=== PATIENT | female | born 1945 | race Caucasian/White ===

== ENCOUNTER → 2020-12-30 13:18 | Outpatient (CLI) | payer OTHER, SELFPAY ==
[2020-12-30 13:57] LABS: Add Manual Diff / Slide Review NO; Basophils Absolute Auto 0 /uL (0-100); Basophils Percent Auto 0.4 % (0-2); Eosinophils Absolute Auto 200 /uL (0-450); Eosinophils Percent Auto 2.3 % (2-4); Hematocrit 41.8 % (36-46); Hemoglobin 13.5 g/dL (12.0-16.0); Lymphocytes Absolute Auto 1700 /uL (1100-4500); Lymphocytes Percent Auto 20.9 % (25-40); Mean Corpuscular HGB Conc 32.2 % (30-36); Mean Corpuscular Hemoglobin 28.7 PG (26-34); Mean Corpuscular Volume 89.2 fL (80-100); Monocytes Absolute Auto 700 /uL (0-900); Monocytes Percent Auto 9.2 % (3-14); Neutrophils Absolute Auto 5400 /uL (1500-7000); Neutrophils Percent Auto 67.2 % (50-75); Platelet Count 300 X10^3/uL (150-400); Red Blood Cell Count 4.69 X10^6/uL (4.0-5.2); Red Cell Distribution Width 14.9 % (11.6-14.8); White Blood Cell Count 8.1 X10^3/uL (4.5-11.0)
[2020-12-30 14:03] LABS: Hemoglobin A1C% w Est Avg Glu 5.7 % (4.0-6.0)
[2020-12-30 14:37] LABS: BUN Creatinine Ratio 18.4 (6-22); Blood Urea Nitrogen 14 mg/dL (7-17); Calcium 9.7 mg/dL (8.4-10.2); Carbon Dioxide 34 mmol/L (22-32); Chloride 99 mmol/L (98-107); Estimated Glomerular Filt Rate > 60.0 mL/min (>60); Glucose 85 mg/dL (80-110); HEMOLYSIS < 15 (0-50); Potassium 4.5 mmol/L (3.4-5.1); Sodium 140 mmol/L (137-145)
== END ==
PROVIDERS: Family Provider Physician Assistant Medical; PCP Internal Medicine; Referring Provider Orthopaedic Surgery Orthopaedic Surgery of the Spine; Visit Provider Orthopaedic Surgery Orthopaedic Surgery of the Spine
DX: Z01.818 Encounter for other preprocedural examination (principal); R73.9 Hyperglycemia, unspecified; Z01.812 Encounter for preprocedural laboratory examination
CPT/HCPCS: 36415; 80048; 83036; 85025; 93005

== ENCOUNTER → 2021-01-29 11:33 | Outpatient (CLI) | payer OTHER, SELFPAY ==
--- NOTE | 2021-01-29 11:52 | DI.CT.S_ITS ---
PROCEDURE: CT LUMBAR SPINE WO CON INDICATIONS: Spinal stenosis, lumbar region without neurogenic TECHNIQUE: Noncontrast 3 mm thick sections acquired from the T12 level to the sacrum. Sagittal and coronal reformats were constructed. For radiation dose reduction, the following was used: automated exposure control. COMPARISON: [facility], MR, MR LUMBAR SPINE WITHOUT CONTRAST, 11/03/2020, 9:25. FINDINGS: Image quality: Excellent. Bones: Vertebral body height and bone mineralization normal. No compression fracture . Minimal anterior spondylolisthesis noted at L3-4. Convex right thoracolumbar scoliosis T12-L1: Disc space narrowing noted without central or foraminal stenosis. L1-L2: Disc space narrowing and mild circumferential disc bulge present. No central or foraminal stenosis. L2-L3: Disc space narrowing with circumferential disc bulge and dorsal epidural fat resulting in moderate to severe central stenosis. Severe left and right foraminal stenosis noted as well. L3-L4: Disc space narrowing and circumferential disc bulge combines with dorsal epidural fat and hypertrophic facet joints result in moderate central stenosis. Severe bilateral foraminal stenosis greater on the right. L4-L5: Disc space narrowing and circumferential disc bulge with hypertrophic facet joints results in mild central stenosis. There is severe right and moderate left foraminal stenosis. L5-S1: Disc space narrowing and circumferential disc bulge present without central stenosis. Hypertrophic facet joints result in severe bilateral foraminal stenosis. Incidental sacral perineural cysts noted with foraminal remodeling, similar to the prior MRI. Soft tissues: No retroperitoneal masses or hematomas. Visualized aorta is normal in caliber. Nonobstructive calculi noted in both kidneys. Moderate fecal debris present in the right colon. IMPRESSION: 1. Multilevel degenerative disc disease and arthropathy resulting varying degrees of central and foraminal stenosis including moderate central stenosis at L2-3 and L3-4 as well as multilevel severe foraminal stenosis in the lower lumbar spine as above. Approved by: Jarret Mcpherson M.D. on 02/06/2021 at 15:41
== END ==
PROVIDERS: Family Provider Physician Assistant Medical; PCP Internal Medicine; Referring Provider Orthopaedic Surgery Orthopaedic Surgery of the Spine; Visit Provider Orthopaedic Surgery Orthopaedic Surgery of the Spine
DX: M48.061 Spinal stenosis, lumbar region without neurogenic claudication (principal); M48.07 Spinal stenosis, lumbosacral region; M51.36 Other intervertebral disc degeneration, lumbar region; M51.37 Other intervertebral disc degeneration, lumbosacral region; M47.816 Spondylosis without myelopathy or radiculopathy, lumbar region; M47.817 Spondylosis without myelopathy or radiculopathy, lumbosacral region
CPT/HCPCS: 72131

== ENCOUNTER → 2021-02-09 10:10 | Outpatient (CLI) | payer OTHER, SELFPAY ==
[2021-02-09 14:14] LABS: COVID19 -Nasal RAPID Negative (Negative)
== END ==
PROVIDERS: Family Provider Physician Assistant Medical; PCP Internal Medicine; Referring Provider Physician Assistant; Visit Provider Physician Assistant
DX: Z01.812 Encounter for preprocedural laboratory examination (principal); Z20.822 Contact with and (suspected) exposure to COVID-19
CPT/HCPCS: 87635

== ENCOUNTER 2021-02-11 06:57 | Inpatient (IN) | payer OTHER, SELFPAY ==
[2021-02-03 08:37] VITALS: BMI 34.3
[2021-02-11] VITALS (16 sets, daily range): BP systolic 111–153; BP diastolic 55–78; PULSE 91–107; RESP 12–17; TEMP 35.9–36.9; O2SAT 92–140; BMI 34.3
--- NOTE | 2021-02-11 | DI.RAD.S_ITS ---
PROCEDURE: XR LUMBAR SPINE 2-3V INDICATIONS: L3-4 L4-5 TLIF TECHNIQUE: 2 views of the lumbar spine were acquired. COMPARISON: [facility], CT, CT LUMBAR SPINE WO CON, 01/29/2021, 11:53. FINDINGS: Fluoroscopic image demonstrating posterior fusion from L3 through L5 with prosthetic discs are noted. IMPRESSION: Fluoroscopic fusion as above. Dictated by: Ailyn Mejia M.D. on 02/11/2021 at 15:16 Approved by: Ailyn Mejia M.D. on 02/11/2021 at 15:35
[2021-02-11] MEDS: LACTATED RINGERS 1,000 ML 42 ML IV ×2 (08:08→10:25)
--- NOTE | 2021-02-11 08:36 | PM.PREOP ---
Pre-operative Note COVID-19 COVID-19 status: Negative Result date/Date tested (Pos, Neg/Pending): 02/09/21 Interval Note History & Physical reviewed/Exam performed by Physician: Yes Changes to H&P: No H&P completed within 30 days and has changed as indicated here:: Surgery is scheduled for L3-4, L4-5 TLIF. Risks for surgery include but not limited to bleeding, infection, nerve/dura/bladder/bowel/blood vessel injury, need for additional procedure, even . Pt understands and would like to proceed with surgery. Informed consent is obtained and placed in the chart.
[2021-02-11] MEDS: CEFAZOLIN 1 GM VIAL 2 GM IV ×2 (09:23→16:59)
[2021-02-11] MEDS: BUPIVACAINE LIPOSOME 266 MG/20 ML VIAL INJ (09:50)
[2021-02-11] MEDS: BUPIVACAINE 0.25% (PF) 30 ML, EPINEPHrine 0.3 MG INJ (09:50)
--- NOTE | 2021-02-11 09:56 | SUR.OPER ---
Prone on spine table, head in foam head support, padded chest and pelvic supports, gel pad at knees, lower legs supported by pillows; nipples, genitalia and toes free of pressure, gel pad placed between heels, arms secured on foam padded arm boards at <90 degrees abduction. Tape over blanket at thigh secured to table. Two Gel pad placed, one between patients stomach and bed frame and thigh and bed frame on left side.
--- NOTE | 2021-02-11 13:01 | P.OP_ITS ---
Operative Date/Time/Diagnoses Date of procedure: 02/11/21 Time of procedure: 08:45 Pre-op diagnosis: 1. L3-4, L4-5 spinal stenosis with radiculopathy 2. Lumbar scoliosis Post-op diagnosis: same Procedure & Clinicians Procedure: 1. L3-4, L4-5 Postero-lateral and posterior interbody fusion 2. L3-4, L4-5 interbody cage placement. 3. L3-4, L4-5 decompressive laminectomy with bilateral facetecomies 4. L3-4, L4-5 Posterior segmental instrumentation 5. [place] of bone marrow from iliac crest 6. Utilization of microsurgical technique and operating microscope 7. Robotic assisted navigation Same procedure as scheduled: Yes Indications: Patient has been having chronic back pain and worsening lumbar radiculopathy. Patient failed multiple conservative management with worsening pain weakness and numbness in her lower extremity. Patient has been having difficulty performing activity of daily living. After discussing risks benefits of treatment options, patient elected proceed with surgery. Surgeon: Eda Yuan Geology Teacher: Cy Daniel Click Yes if Unassisted: No Anesthesia Type: General Operative Notes Closure Type: primary Specimen(s): none sent Prosthetic devices, grafts, tissues, transplants, or devices: Globus CREO MIS screws, Rise cages Applied: catheter Estimated Blood Loss (mL): 150 Blood products transfused: none Procedure in detail: Patient was seen in the preoperative area. Risks and benefits of the surgery was discussed with the patient. Informed consent was obtained from the patient and placed in the chart. Surgical site was marked. Patient was taken to the operative room. General anesthesia was administered. Prophylactic antibiotic was given to the patient less than 30 min before the incision was made. Patient was placed into a prone position on the Bear table. Patient's back was then prepped and draped in the sterile fashion. Time-out was performed at this time. After patient was prepped and draped, patient's PSIS was palpated and marked bilaterally. Small 1 cm incision was made over the PSIS for placement of the reference probes. Two trocar was placed into the PSIS 1 on each side. The reference probe was attached to the trocar of the reference apparatus. At this time the C-arm imaging was used to confirm AP and lateral of L3, L4-L5 vertebrae and merged the C-arm imaging using the [employer] robotic navigation system with the CT of the lumbar spine. After successful merging was completed and confirmed, skin marker was used to yaya out the skin incision using the [employer] robotic arm. Bilateral incision was made at this time. Pre templated trajectory was used and guided using the [employer] robotic navigation system for bilateral L3 L4, L5 pedicle screw placement. This was done by using the robotic arm to guide the high-speed bur to make a cortical entry point. Next a drill was placed also using the robotic arm and guided using the navigation system drilling partially through bilateral L3, L4, L5 pedicles. Next L3, L4, L5 pedicle screws it was pre templated and measured was placed onto the power transportation driver and inserted into the pedicles bilaterally. After all 6 screws were placed C-arm imaging was taken of both AP and lateral to confirm the placement. Excellent placement of the screws were confirmed and a matched precisely with the pre planned screw placement using the navigation system. MARs retractor was inserted using [employer] guidence. Globus MARS retractors was placed inside the incision and docked onto the L3, L4 lamina. Using microsurgical technique and operating microscope, a L4, L5 laminectomy and L3-4, L4-5 facetectomy was performed using a [place] rongeur. Patient was found have severe lateral recess and neural foramen stenosis which was fully decompressed after the laminectomy facetectomy. More than 75% of the facets were removed during the process of decompression rendering L3-4, L4-5 level grossly unstable and required a fusion procedure at the same time. The disc space at L3-4, L4-5 was identified, and a total diskectomy was performed at L3- 4, L4-5 level. The endplates were decorticated using a rasp and shaver. The total diskectomy and decortication was performed at L3-4, L4-5 level in order to to accomplish a L3-4, L4-5 fusion. The local bone from the laminectomy and facetectomy was saved for local bone grafting. After the total diskectomy and decortication was completed, Trifecta bone graft material was combined with local bone that was harvested earlier. At this time, a separate skin is incision was made over the iliac crest. A Jamshidi needle was inserted into the iliac crest through a separate skin incision. 5 cc of bone marrow aspiration was obtained through the separate skin incision using a Jamshidi needle from the iliac crest. The bone marrow aspiration was combined with local bone and the Trifecta bone grafting material. The bone grafting material was placed into the L3-4, L4-5 interbody space along with expandable cages. One cage each was inserted into the L3-4 L4-5 interbody space along with bone graft material. The cage was expanded to its maximum height using the torque limiting screwdriver. The disc preparation as well as the cage insertion were also performed under navigation guidance. After the cage was placed, AP and lateral C-arm imaging was taken to confirm placement of the cage and excellent position was confirmed. Globus MARS retractor was inserted and docked onto the L3-4, L4-5 posterolateral gutter on the right side. Using the power drill, posterior-lateral decortication was performed at L3-4, L4-5 level until bleeding cortical bone was identified. The remaining bone grafting material was placed into the L3-4, L4-5 posterior lateral gutter he order to accomplish posterolateral fusion at the L3- 4, L4-5 level. At this time the tulips were attached to the L3, L4-L5 pedicle screw shanks. After measuring the length of the rods, they were inserted into the tulips of the pedicle screws and locked in place using locking caps and torque limiting screwdriver bilaterally. Total 6 caps and 2 titanium rods was used in order to complete the posterior instrumentation construct. After all the hardware was placed, and confirmed with AP and lateral C-arm imaging, the wound was then irrigated with sterile normal saline and packed with Ray-Tony gauze for 3 min to accomplish hemostasis. After the gauze was removed the deep fascia was closed with #1 Vicryl suture. The subcutaneous layer was closed with 2-0 Vicryl. The skin was closed with skin lora. Patient tolerated the procedure well. There were no complications. Neuro monitoring system was used to monitor patient's neurologic status throughout entire procedure. There was no disturbance of the neural monitoring signals throughout the case. Complications: none Post-operative Condition: stable Disposition: PACU Plan for aftercare: Admit to inpatient hospital
[2021-02-11] MEDS: OXYCODONE/ACETAMINOPHEN 5/325 TABLET 1 TAB PO (14:24)
--- NOTE | 2021-02-11 15:03 | PC.NURSE ---
Day shift: Pt on AC unit from PACu at approx 1500. She is A&Ox4 but tired and she stated I feel kind of confused. She knows the date and why she is here and who did the surgery just slow to respond. She also knows her name and BD. CMS intact and PPP. Dressing is CDI. Foot SCD's in place and tolerated. On 3L NC 94%. Hx using CPAP and her CPAP in room. Call light in reach and bed alarm is on. Will continue w/ post-op plan of care.
--- NOTE | 2021-02-11 15:03 | SUR.PHASEI ---
pacu note: 1455-Pt met criteria to transfer to floor. More awake and alert. Reminded prn that surgery is over,and reassured prn. Patient calm and cooperative. vss. no nausea. pain level 3-4/10 and tolerable. pain pill given prior to report to floor. neurochecks ble wnl. grasps/csm bue wnl. tolerating fluids po well-sips of water/ice chips. redness to chest and groins from positioning in OR resolved. small rt upper lip cut noted-not bleeding. lumbar dressing cdi.Report to floor RN by phone prior to transfer. to room by bed with 2 l nc oxygen. 2 bags of belongings and cpap with patient. iv converted to sl prior to transffer.
[2021-02-11] MEDS: SODIUM CHLORIDE 0.9% 1,000 ML 100 ML IV (15:31)
[2021-02-11] MEDS: PREGABALIN 75 MG CAPSULE PO ×2 (15:36→21:18)
[2021-02-11] MEDS: HYDROMORPHONE 0.5 MG INJ IV (15:36)
[2021-02-11] MEDS: OXYCODONE IR 5 MG TABLET 10 MG PO (15:36)
[2021-02-11] MEDS: OXYCODONE IR 10 MG TABLET PO ×2 (19:39→23:36)
[2021-02-11] MEDS: DOCUSATE 100 MG CAPSULE PO (21:18)
[2021-02-11] MEDS: SENNOSIDES 8.6 MG TABLET 17.2 MG PO (21:18)
[2021-02-11] MEDS: NORTRIPTYLINE 10 MG CAPSULE PO (21:24)
--- NOTE | 2021-02-11 22:47 | PC.NURSE ---
Addendum entered by Mirian Costello R.N. 02/12/21 04:47: Oxygen had to be increased to 4L/min via CPAP during the night to maintain sat > 92% while asleep. Now awake so placed back on NC at 3L/min. Original Note: Patient is alert and oriented. Breath sounds diminished at bases. On oxygen at 3L/min with sat of 92%. RT up to assist patient with CPAP and bled O2 in at 3L/min. HRR but tachy in low 100's on auscultation. Denied nausea. BT hypoactive but states she has passed flatus. Indwelling catheter is patent and urine is clear yellow. Is able to turn self in bed (instructed in log roll) with staff assist for pillow placement. Dressing to back is CDI. States she has bilateral hand numbness which was present pre-op and unchanged. Wearing bilateral foot SCD's. Stated pain was 7/10 so was medicated with oxycodone and was asleep on reassessment. Fall risk score is high and bed alarm is activated.
[2021-02-12] VITALS (7 sets, daily range): BP systolic 102–125; BP diastolic 40–58; PULSE 95–109; RESP 16–18; TEMP 36.4–37.1; O2SAT 92–98
[2021-02-12] MEDS: CEFAZOLIN 1 GM VIAL 2 GM IV (00:47)
[2021-02-12] MEDS: hydrOXYzine pamoate 25 MG CAPSULE PO (00:48)
[2021-02-12] MEDS: SODIUM CHLORIDE 0.9% 1,000 ML 100 ML IV (01:34)
[2021-02-12] MEDS: OXYCODONE IR 10 MG TABLET PO ×3 (03:30→11:40)
[2021-02-12] MEDS: LEVOTHYROXINE 75 MCG TABLET PO (05:31)
--- NOTE | 2021-02-12 07:47 | PM.PNPO.1 ---
Subjective Subjective Date Patient Seen: 02/12/21 Time Patient Seen: 07:47 Interval history: Patient is complaining of moderate low back pain this morning. She notes oxy 10 is helping her. She denies any new numbness or tingling. No fevers, chills, night sweats. She lives in a 3 story house and has not worked with physical therapy yet. Exam Vital Signs (past 8 hours): - 02/12/21 01:54 02/12/21 05:57 Temperature 97.6 F 98.7 F Pulse Rate 95 H 96 H Respiratory Rate 18 17 Blood Pressure 125/58 L 111/48 L Pulse Oximetry 92 95 Oxygen Delivery Method CPAP Oxygen Flow Rate 2 Narrative Exam Narrative: Pleasant 75-year-old female, resting comfortably in bed, no acute distress. Dressing has extensive the bloody drainage on the left side. Bilateral lower extremity motor function is grossly intact. Sensation is grossly intact to light touch. Bilateral calves are soft, nontender to palpation. Objective Labs Result Diagrams: 02/12/21 06:52 [facility] Medical History Anxiety Arthritis Asthma Depression Easy bruisability Fusion of spine of cervical region (2014) IRAM (generalized anxiety disorder) HTN (hypertension) Hypothyroid ROVERTO on CPAP Patellar fracture (2009) Sciatica Scoliosis Spinal stenosis of lumbar region with radiculopathy Spondylolisthesis Surgical History History of hysterectomy (1988) History of total left knee replacement History of total right knee replacement Hx of colonoscopy Hx of sinus surgery Social History household members: spouse Smoking Status: Never smoker alcohol intake: current Assessment & Plan Post-op Postoperative Procedures: Procedures Operation Date: 02/11/21 08:45 Actual Procedure Side Surgeon p Right L3-4, L4-5 TLIF with posterior instrumentation - Robot Eda Yuan MD Postoperative day: 1 Postoperative status narrative: Stable status post TLIF Postoperative plan narrative: -mobilize with PT. Limit bending, lifting, twisting. Weightbearing as tolerated front wheel walker. -encouraged regular use of Tylenol and oxy 10 for pain management. -likely DC home tomorrow once cleared by PT, she lives in a 3 story house Quality VTE Deep Vein Thrombosis/Pulmonary Embolism Present on Admission: No
[2021-02-12 08:10] LABS: Hematocrit 35.6 % (36-46); Hemoglobin 11.6 g/dL (12.0-16.0)
[2021-02-12] MEDS: DOCUSATE 100 MG CAPSULE PO ×2 (08:34→20:23)
[2021-02-12] MEDS: VENLAFAXINE ER 75 MG CAP 150 MG PO (08:34)
[2021-02-12] MEDS: PREGABALIN 75 MG CAPSULE PO ×3 (08:34→20:23)
[2021-02-12] MEDS: lisinopriL 20 MG TABLET PO (08:34)
[2021-02-12] MEDS: NORTRIPTYLINE 10 MG CAPSULE PO ×2 (08:34→20:23)
[2021-02-12] MEDS: LORATADINE 10 MG TABLET PO (08:38)
[2021-02-12] MEDS: INFLUENZA HD VACCINE 0.7 ML SYRINGE IM (08:39)
[2021-02-12] MEDS: SODIUM CHLORIDE 0.9% FLUSH 10 ML IV ×2 (08:44→22:46)
--- NOTE | 2021-02-12 09:14 | DIET.PN1 ---
Dietary Progress Note Assessment: 75y F admitted for planned Right L3-4, L4-5 TLIF with posterior instrumentation - Robot referred to nutrition for diabetic diet (preDM). Pt reports she follows diabetic diet at home because her has DM2. Pt states her biggest barrier is not being able to be as active as she has been in the past but is confident that this surgery and new orthotics will make all the difference. Discussed importance of regular physical activity to avoid dx DM2 along with good, carb controlled diet. Pt agrees to plan and looks forward to starting PT. Ht: 162.56 cm Wt: 90.718 kg BMI: 34.3 Last BM: 02/10/21 (02/11/21 16:25) MNA: 11 Samuel Score: 19 Diet: 02/11/21 Lunch General (Regular) Diet Diet Modifications: Nutrition Percent Meal Consumed 100% 02/12/21 08:43 Percent Meal Consumed 50% 02/11/21 18:13 Labs: Hgb 11.6 g/dL (12.0-16.0) L 02/12/21 06:52 Hct 35.6 % (36-46) L 02/12/21 06:52 Electronically Signed by: Christiana Omer 02/12/21 09:14 Clinical Dietitian [address] [address]
--- NOTE | 2021-02-12 09:40 | PT.IIE ---
Current Diagnoses Other secondary scoliosis, lumbar region (02/12/21) Spondylolisthesis, lumbar region (02/12/21) Spinal stenosis, lumbar region without neurogenic claudication (02/12/21) Surgery Performed Operation Date: 02/11/21 08:45 Actual Procedures p Right L3-4, L4-5 TLIF with posterior instrumentation - Robot - Eda Yuan MD Medical History (Last Reviewed 02/12/21 @ 07:48 by Lisa Guzman PA-C) Anxiety Arthritis Asthma Depression Easy bruisability Fusion of spine of cervical region (2014) IRAM (generalized anxiety disorder) HTN (hypertension) Hypothyroid ROVERTO on CPAP Patellar fracture (2009) Sciatica Scoliosis Spinal stenosis of lumbar region with radiculopathy Spondylolisthesis Physical Therapy Inpatient Evaluation/Re-Eval M1 PT/OT-IP Prior Functional Status Start: 02/12/21 13:32 Freq: NEEDED Status: Active Protocol: Document 02/12/21 09:40 AB (Rec: 02/12/21 13:57 AB [id number]) Medical Review Prior Functional Status Medical History Reviewed Yes Communication able to make needs known but is drowsy Mobility and Gait pt stated that she is independent with all mobilities and ambulation without AD but uses a 4WW occasionally for outdoor mobility dependent on back pain Activities of Daily Living and IADL's Pt states needing increased time for ADl needs and that her has to do IADl needs. Social History Household Members spouse Living Arrangements House Number of Floors (Floors) 3 or More Floors Number of Stairs To Enter/Railing? 1 step to enter: can stay on first level if needed 20 steps R rail ascending to bedroom level/kitchen Home Environment Standard Height Toilet,Walk in Shower Home Equipment Four Wheel Walker,Raised Toilet Seat w/Armrests,Shower Seat with Backrest,Hand Held Shower Additional Social History Comment has a toilet safety frame M2 PT-IP Current Condition Start: 02/12/21 13:32 Freq: NEEDED Status: Active Protocol: Document 02/12/21 09:40 AB (Rec: 02/12/21 13:57 AB [id number]) Physical Therapy Current Condition Current Condition Evaluation Date 02/12/21 Treatment Diagnosis s/p L3-4,L4-5 TLIF; difficulty in walking Onset Date 02/11/21 M3 PT-IP Subjective Start: 02/12/21 13:32 Freq: NEEDED Status: Active Protocol: Document 02/12/21 09:40 AB (Rec: 02/12/21 13:57 AB [email or web address]) Subjective Physical Therapy Visit Type Type Initial Evaluation Visit Start Time 09:40 Visit Stop Time 10:26 Total Visit Minutes 46 Number of MUSEUM REGISTRAR Visits 0 Physical Therapy Visit Comments Patient Comments agreeable to do PT Therapy Pain Assessment Pain When Pain Assessed At Rest Pain Present Pain Present Pain Reported Location Back Intensity 5 Scale Used Numeric (0 - 10) Pain Management Techniques Apply Cold,Modification of Treatment,Re-positioning, Timing of Activity with Medications M4 PT-IP Mobility and Gait Start: 02/12/21 13:32 Freq: NEEDED Status: Active Protocol: Document 02/12/21 09:40 AB (Rec: 02/12/21 13:57 AB [email or web address]) PT-Bed Mobility Assessment Rolling Type of Rolling Log Rolling Level of Assist Moderate Assistance Supine to Sit Supine to Sit Moderate Assistance PT-Transfer Assessment Sit to and From Stand Sit to and from Stand Moderate Assistance,1 Person Assistance,Use of Upper Extremities Equipment Transfer Assistive Device Front Wheeled Walker Orthotic/Prosthetic Devices or Brace: No Transfers Transfer Destination Chair Transfer Technique ambulated Transfer Ability Level of Assist Moderate Assistance,1 Person Assistance,Use of Upper Extremities Comments Mobility Comments educated pt on back precautions and mitul groll bed mobility. pt is requiring increase cues and repeated instructions during session and needs time to respond and complete all tasks. pt admitted that she feels foggy. BP in suine: 114/56. completed supine to sit log roll mod a and max cues. pt was able to sit on EOB CGA and cues. BP in sittin/58. completed sit to stand mod A and cues and ambulated in room ~ 10 ft using FWW mod A and cues. presents with unsteady gait. pt agreed to sit up on chair. positioned on chair. call light and table place within reach. ice pack provided. BP after ambulation: 116/52 Gait Assessment Gait Gait Assistance Required: Moderate Assistance Distance (Feet) 10 Able to Maintain Weight Bearing Status Yes During Gait Assistive Devices Assistive Device Gait Belt,Front Wheeled Walker Orthotic/Prosthetic Devices or Brace: No Gait Deviations General Gait Pattern Ataxic,Decreased Stride Length ,Decreased Feet Clearance,Wide Based Gait Factors Limiting Gait Function Factors Limiting Gait Function Decreased Activity Tolerance, Decreased Strength,Difficulty Following Directions,Limited Range of Motion,Pain,Poor Balance,Poor Safety Awareness PT-Balance Assessment Sitting Balance and Reactions Static Sitting Balance Ability Good Dynamic Sitting Balance Ability Fair Standing Balance and Reactions Static Standing Balance Ability Fair Dynamic Standing Balance Ability Poor Device Used FWW M5 PT-IP Objective Assessments Start: 02/12/21 13:32 Freq: NEEDED Status: Active Protocol: Document 02/12/21 09:40 AB (Rec: 02/12/21 13:57 AB [email or web address]) Orientation Orientation/Cognition Level of Alertness Alert Orientation Name,Place,Situation Safety Awareness Decreased Safety Awareness Memory Description Short Term Impaired Gross Range of Motion Lower Extremity ROM Assessment Within Functional Limits Strength Lower Extremity Strength Hip 4-/5 Knee 4-/5 Coordination Assessment Gross Coordination Gross Coordination WNL Sensation Assessment Sensation Gross Sensation WNL Muscle Tone Muscle Tone WNL Yes M6 PT-IP Treatment Start: 02/12/21 13:32 Freq: NEEDED Status: Active Protocol: Document 02/12/21 09:40 AB (Rec: 02/12/21 13:57 AB [email or web address]) Physical Therapy Treatment Education Education Provided Precautions,Weight Bearing Status,Post-Op Packet,Safety M7 PT-IP Assessment and Plan Start: 02/12/21 13:32 Freq: NEEDED Status: Active Protocol: Document 02/12/21 09:40 AB (Rec: 02/12/21 13:57 AB [email or web address]) PT Summary Assessment and Plan Potential Rehabilitation Potential Good Status of Condition at Evaluation Evolving Summary Impairments Pain,ROM,Strength,Balance, Coordination,Sensation,Tone, Cognition,Bed Mobility, Transfers,Gait,Activity Tolerance Assessment Summary pt requiring mod A with mobility and needs time to follow directions. pt stated that she feels foggy. will continue to assess progress and will conduct caregiver training when appropriate as well as stair climbing training. Goals Bed Mobility Goal Standby Assistance Transfer Goal Standby Assistance,Front Wheeled Walker Gait Goal Standby Assistance,Front Wheel Walker Gait Distance 150 Other Goals up/down 1 steps using 4WW/FWW SBA up/down 20 steps R rail SBA Days to Meet Goals 5 Frequency of Treatment Frequency Of Treatment Twice a Day Treatment Plan Physical Therapy Treatment Plan Bed Mobility Training,Transfer Training,Gait Training, Therapeutic Exercise,Balance Retraining,Post Op Education, Discharge Planning,Hot or Cold Pack,Neuromuscular Re-ed, Coordination Retraining,Manual Therapy Other Recommendations and Next Treatment ambulation, stair climbing Focus when appropriate, log roll bed mobility Precautions Lumbar Precautions Log Roll,No Twisting,Limit Bending,Lifting Restriction of 10 lbs,Gait Belt above Incisional Area Recommendations To Nursing Amount of Assist Needed 1 Person Assist Discharge Recommendations PT Discharge Recommendations Home with Assistance Equipment Needed for Home Before FWW if not safe with 4WW Discharge Transportation Needs at Discharge Private Vehicle
--- NOTE | 2021-02-12 11:11 | OT.IP.EVAL ---
Current Diagnoses Other secondary scoliosis, lumbar region (02/12/21) Spondylolisthesis, lumbar region (02/12/21) Spinal stenosis, lumbar region without neurogenic claudication (02/12/21) Surgery Performed Operation Date: 02/11/21 08:45 Actual Procedures p Right L3-4, L4-5 TLIF with posterior instrumentation - Robot - Eda Yuan MD Past Medical History (Last Reviewed 02/12/21 @ 07:48 by Lisa Guzman PA-C) Anxiety Arthritis Asthma Depression Easy bruisability Fusion of spine of cervical region (2014) IRAM (generalized anxiety disorder) History of hysterectomy (1988) History of total left knee replacement History of total right knee replacement HTN (hypertension) Hx of colonoscopy Hx of sinus surgery Hypothyroid ROVERTO on CPAP Patellar fracture (2009) Sciatica Scoliosis Spinal stenosis of lumbar region with radiculopathy Spondylolisthesis Surgical History (Last Reviewed 02/12/21 @ 07:48 by Lisa Guzman PA-C) History of hysterectomy (1988) History of total left knee replacement History of total right knee replacement Hx of colonoscopy Hx of sinus surgery Occupational Therapy Inpatient Evaluation/Re-Eval M1 PT/OT-IP Prior Functional Status Start: 02/12/21 13:02 Freq: NEEDED Status: Active Protocol: Document 02/12/21 13:02 [facility] (Rec: 02/12/21 13:20 [facility] [id number]) Medical Review Prior Functional Status Communication Independent. Mobility and Gait Pt states could only stand for 5 minutes at a time before having too much back pain. Activities of Daily Living and IADL's Pt states needing increased time for ADl needs and that her has to do IADl needs. Social History Household Members spouse Living Arrangements House Number of Floors (Floors) 3 or More Floors Number of Stairs To Enter/Railing? Pt has one platform step to get into the main level of the house in which she plans to stay on. Home Environment Standard Height Toilet,Walk in Shower Home Equipment Front Wheel Walker,Four Wheel Walker,Raised Toilet Seat w/ Armrests,Kelp Or Seagrass Gatherer Additional Social History Comment Pt also has a toilet safety frame on the toilet. Pt has a recliner that she plans to sleep in initially. M2 OT-IP Current Condition Start: 02/12/21 13:02 Freq: Status: Active Protocol: Document 02/12/21 13:02 [facility] (Rec: 02/12/21 13:20 [facility] [id number]) Occupational Therapy Current Condition Current Condition Evaluation Date 02/12/21 Treatment Diagnosis S/P R L3-4, L4-5 TLIF Post Operative Precautions Lumbar Precautions Log Roll,No Twisting,Limit Bending,Lifting Restriction of 10 lbs,Gait Belt above Incisional Area M3 OT- IP Subjective and Pain Start: 02/12/21 13:02 Freq: Status: Active Protocol: Document 02/12/21 13:02 [facility] (Rec: 02/12/21 13:20 [facility] [id number]) OT- Subjective Occupational Therapy Visit Type Type Initial Evaluation Visit Start Time 10:40 Visit Stop Time 11:11 Total Visit Minutes 31 Occupational Therapy Visit Comments Patient Comments Pt agreed to stand up and work with OT. Patient/Caregiver Goals TO go home. OT Pain Assessment Pain When Pain Assessed At Rest Pain Present Pain Present Pain Reported Location Back Intensity 5 Scale Used Numeric (0 - 10) M4 OT- IP ADL's Start: 02/12/21 13:02 Freq: Status: Active Protocol: Document 02/12/21 13:02 [facility] (Rec: 02/12/21 13:20 [facility] [id number]) OT ADL-Grooming Comments OT Grooming Comments Pt not wanting to do at this time. OT ADL-Oral Care Comments Oral Care Comments Educated to pt best to spit into a cup to best follow her back precautions during oral care needs. OT ADL-Dressing General Eval Lower Body Dressing Ability Moderate Assistance Comments OT Dressing Comments Pt has a commissary assistant at home and able to practice sock aid and pt having difficulty to follow directions and will continue to benefit form more practice. OT ADL-Toileting Comments OT Toileting Comments Pt not having to go. Able to simulate if able to reach in order to do pericare needs while standing with FWW and pt able to reach appropriately. Pt states wears briefs/pads and has wet wipes to assist with her needs. Also showed pt an example of toilet paper aid as pt states her will probably not assist with her hygiene needs. Also suggested may be beneficial to get a BCS as pt plans on sleeping in a recliner and her is very hard of hearing and may be able to wake up to hear her at night. OT ADL-Bathing Comments OT Bathing Comments Not performed. Pt agreed best to get a shower chair and install a HHSP. M5 OT- IP IADL's Start: 02/12/21 13:02 Freq: Status: Active Protocol: Document 02/12/21 13:02 [facility] (Rec: 02/12/21 13:20 [facility] [id number]) OT-Instrumental Activities of Daily Living Home Safety Awareness Home Safety Comments Pt's to assist pt for all needs. Pt is a bit groggy from pain medications, forgetful and would benefit form 18/10 avaible assist at this time. M6 OT- IP Functional Cognition Start: 02/12/21 13:02 Freq: Status: Active Protocol: Document 02/12/21 13:02 [facility] (Rec: 02/12/21 13:20 [facility] [id number]) Cognitive Factors Limiting Selfcare Function Cognitive Ability Level of Alertness Alert,Confusional State Patient Orientation Name,Place,Situation Attention Span Ability Capable of Focused Attention, Unable to Sustain Attention Ability to Follow Commands Able to Follow One Step Commands with Increased Time, Able to Follow One Step Commands with Repetition Safety Awareness Decreased Recall of Precautions,Decreased Ability to Apply Precautions, Underestimates Need for Assistance Problem Solving Ability Unable to Identify Errors, Needs Assist to Identify Solutions Cognitive Comments Cognitive Assessment Comments Pt needing assist to recall , incorporate and ceus to be able to use sock aid at this time. OT- Vision and Hearing OT- Hearing Assessment OT- Hearing Assessment WFL OT- Vision Assessment Visual Acuity Glasses All The Time M7 OT- IP Mobility and Balance Start: 02/12/21 13:02 Freq: Status: Active Protocol: Document 02/12/21 13:02 [facility] (Rec: 02/12/21 13:20 [facility] [id number]) OT-Transfer Assessment Sit to and From Stand Sit to and from Stand Minimal Assistance Comments Mobility Comments Pt just finishing PT earlier and just agreeable to stand from the recliner at this time as waiting for lunch to come. OT- Balance Assessment Sitting Balance and Reactions Static Sitting Balance Ability Good Dynamic Sitting Balance Ability Good Standing Balance and Reactions Static Standing Balance Ability Fair M8 OT- IP Objective Assessments Start: 02/12/21 13:02 Freq: Status: Active Protocol: Document 02/12/21 13:02 [facility] (Rec: 02/12/21 13:20 [facility] [id number]) OT- Coordination Assessment Comments Coordination Comments Arthritic changes in her hands . OT-Muscle Tone Assessment Muscle Tone WNL Yes M9 OT- IP Assessment and Plan Start: 02/12/21 13:02 Freq: Status: Active Protocol: Document 02/12/21 13:02 [facility] (Rec: 02/12/21 13:20 [facility] [id number]) OT Summary Assessment and Plan Potential Rehabilitation Potential Good Analytic Complexity at Evaluation Low Summary OT Impairments Pain,Balance,Functional Cognition,Functional Mobility, Grooming,Dressing,Toileting, Bathing,Toilet Transfers, Shower Transfers,Activity Tolerance Progress Towards Goals Slow Progress due to Pain,Slow Progress due to Cognition Assessment Summary Pt Low complexity and main barriers are pain, a bit groggy and not thinking well from her pain medications, step at home and will now need assist for all Adl and mobility needs. Pt has a supportive who will be able to assist her at home. Pending progress and caregiver training, pt to go home with 24/7 assist. Goals Grooming Goal Independent Dressing Goal Independent Toileting Goal Independent Bathing Goal Standby Assistance Toilet Transfer Goal Independent Shower Transfer Goal Independent Patient/Caregiver Education Goal Demonstrate Post-Op Precautions,Caregiver Independent Assisting Patient Days to Meet Goals 7 Frequency of Treatment Frequency Of Treatment Once a Day Treatment Plan OT Treatment Plan ADL Training,Functional Cognition Training,Functional Mobility,Patient/Family Education,Discharge Planning Other Treatment Recommendations and Next shower if able Treatment Focus Discharge Recommendations OT Discharge Recommendations Home with 24/7 Assist Available Home Equipment Needs BSC, shower chair, HHPS Transportation Needs at Discharge Private Vehicle
--- NOTE | 2021-02-12 13:32 | CM.IDA ---
Initial DCP Assessment Note Pt is a 75 yo female, resident of [facility]. now POD#1 from spinal surgery by Dr Yuan PCP: Eugenio Healy Payer: Chris LOPEZ Reviewed chart, met w/patient, introduced role. Patient has planned to return home w/spouse to assist upon DC. OT has cleared patient for this plan, PT note is pending. Patient has had both knees replaced, understands this recovery will be different, however, she is confident in her spouse's abilities to assist 24/ once home. Spouse provides assist w/ADLs currently d/t pt's back pain and decreased tolerance to activity/standing. No needs expected from DC planning team although will remain available in case this changes before patient's DC. THEA Clements Discharge Planning/Care Management CM Discharge Assessment Start: 02/12/21 13:28 Freq: Status: Active Protocol: Document 02/12/21 13:28 JADEN (Rec: 02/12/21 13:32 JADEN [id number]) Discharge Planning Assessment Assigned Junior Web Developer THEA Bryant DPOA/Assigned Designee Name George Arroyo spouse Contact Information [phone] Advance Directives? Yes Advance Directives on File No History Provided By Patient Prior Living Arrangements House Household Members spouse Type of transporation used prior to Relies on Others admit Comment Low activity tolerance d/t pain. Spouse assists w/ADLs as needed Independent with ADL's No: Spouse assists d/t back pain Is patient alert and oriented? Yes Barriers to Discharge No Comment Cleared by OT for home w/ assist from spouse, PT note pending. Will not DC today, POD1 Discharge Plan Home Transportation Arrangement Family Referrals Initiated None needed Additional Comment At this time Whiteboard Updated in Patient Room with Yes name and ext. # of Junior Web Developer
--- NOTE | 2021-02-12 13:54 | PC.NURSE ---
Day shift: Pt awake from approx 1.5 hour long nap. O2 80% and placed on 3L NC. O2 now 98%. Pt instructed and using I.S. Remains sleepy and slow to answer questions but is A&Ox4. CMS intact and equal applications specialist strength present. Encouraged to drink water. Sitting in chair and she stated that her pain is good. Next pain med dose she will be given 5mg oxy instead of the 10mg oxy. Will continue to monitor. Call light in reach. Melissa remains patent with clear yellow output. Will continue with post-op plan of care.
--- NOTE | 2021-02-12 14:36 | PT.IPTN ---
Current Diagnoses Other secondary scoliosis, lumbar region (02/12/21) Spondylolisthesis, lumbar region (02/12/21) Spinal stenosis, lumbar region without neurogenic claudication (02/12/21) Surgery Performed Operation Date: 02/11/21 08:45 Actual Procedures p Right L3-4, L4-5 TLIF with posterior instrumentation - Robot - Eda Yuan MD Physical Therapy Treatment Note M2 PT-IP Current Condition Start: 02/12/21 13:32 Freq: NEEDED Status: Active Protocol: Document 02/12/21 09:40 AB (Rec: 02/12/21 13:57 AB [id number]) Physical Therapy Current Condition Current Condition Evaluation Date 02/12/21 Treatment Diagnosis s/p L3-4,L4-5 TLIF; difficulty in walking Onset Date 02/11/21 M3 PT-IP Subjective Start: 02/12/21 13:32 Freq: NEEDED Status: Active Protocol: Document 02/12/21 14:17 KS (Rec: 02/12/21 15:22 KS [id number]) Subjective Physical Therapy Visit Type Type Treatment Note Visit Start Time 14:17 Visit Stop Time 14:36 Total Visit Minutes 19 Notes RN present during tx. Number of FIELD APPLICATION ENGINEER Visits 1 Physical Therapy Visit Comments Patient Comments agreeable to do PT Therapy Pain Assessment Pain When Pain Assessed At Rest Pain Present Pain Present Denied Pain M4 PT-IP Mobility and Gait Start: 02/12/21 13:32 Freq: NEEDED Status: Active Protocol: Document 02/12/21 14:17 KS (Rec: 02/12/21 15:22 [place] [id number]) PT-Bed Mobility Assessment Rolling Type of Rolling Log Rolling Level of Assist Moderate Assistance Sit to Supine Sit to Supine Moderate Assistance,1 Person Assistance,Bedrails PT-Transfer Assessment Sit to and From Stand Sit to and from Stand Moderate Assistance,1 Person Assistance,Use of Upper Extremities Equipment Transfer Assistive Device Front Wheeled Walker Orthotic/Prosthetic Devices or Brace: No Transfers Transfer Destination Bed Transfer Technique Stand Step Pivot Transfer Ability Level of Assist Moderate Assistance,1 Person Assistance,Use of Upper Extremities Comments Mobility Comments Pt reclined in chair upon arrival and wanting to get in bed. BP 87/49 in sitting, reclined pt again and BP:101/ 44. Spoke w/ RN, agreed to transfer to bed. Mod A for sit <>stand and Mod A max cues for stand step pivot to bed. Mod A for sit<>sidelying, logroll and repositioning in bed. Pt placed in trendelenberg to improve BP. Pt reported dizziness. Pt left in bed w/ all needs in reach and RN in room monitoring BP and O2. Gait Assessment Comments Gait Comments Unsafe due to low BP. PT-Balance Assessment Sitting Balance and Reactions Static Sitting Balance Ability Good Dynamic Sitting Balance Ability Fair Standing Balance and Reactions Static Standing Balance Ability Fair Dynamic Standing Balance Ability Poor Device Used FWW M5 PT-IP Objective Assessments Start: 02/12/21 13:32 Freq: NEEDED Status: Active Protocol: Document 02/12/21 09:40 AB (Rec: 02/12/21 13:57 AB [id number]) Orientation Orientation/Cognition Level of Alertness Alert Orientation Name,Place,Situation Safety Awareness Decreased Safety Awareness Memory Description Short Term Impaired Gross Range of Motion Lower Extremity ROM Assessment Within Functional Limits Strength Lower Extremity Strength Hip 4-/5 Knee 4-/5 Coordination Assessment Gross Coordination Gross Coordination WNL Sensation Assessment Sensation Gross Sensation WNL Muscle Tone Muscle Tone WNL Yes M6 PT-IP Treatment Start: 02/12/21 13:32 Freq: NEEDED Status: Active Protocol: Document 02/12/21 14:17 KS (Rec: 02/12/21 15:22 KS [id number]) Physical Therapy Treatment Education Education Provided Precautions,Weight Bearing Status,Post-Op Packet,Safety Other Treatments Other Treatment Performed Unable to recall precautions this PM. M7 PT-IP Assessment and Plan Start: 02/12/21 13:32 Freq: NEEDED Status: Active Protocol: Document 02/12/21 14:17 KS (Rec: 02/12/21 15:22 KS [id number]) PT Summary Assessment and Plan Potential Rehabilitation Potential Good Status of Condition at Evaluation Evolving Summary Impairments Pain,ROM,Strength,Balance, Coordination,Sensation,Tone, Cognition,Bed Mobility, Transfers,Gait,Activity Tolerance Assessment Summary Pt continues to require Mod A for mobility and transfers w/ FWW. Pt limited in mobility this PM due to low BP and unable to recall precautions. Will continue to progress patient progress and complete caregiver and stair traning when pt low BP resolved. Goals Bed Mobility Goal Standby Assistance Transfer Goal Standby Assistance,Front Wheeled Walker Gait Goal Standby Assistance,Front Wheel Walker Gait Distance 150 Other Goals up/down 1 steps using 4WW/FWW SBA up/down 20 steps R rail SBA Days to Meet Goals 5 Frequency of Treatment Frequency Of Treatment Twice a Day Treatment Plan Physical Therapy Treatment Plan Bed Mobility Training,Transfer Training,Gait Training, Therapeutic Exercise,Balance Retraining,Post Op Education, Discharge Planning,Hot or Cold Pack,Neuromuscular Re-ed, Coordination Retraining,Manual Therapy Other Recommendations and Next Treatment ambulation, stair climbing Focus when appropriate, log roll bed mobility Precautions Lumbar Precautions Log Roll,No Twisting,Limit Bending,Lifting Restriction of 10 lbs,Gait Belt above Incisional Area Recommendations To Nursing Amount of Assist Needed 1 Person Assist Discharge Recommendations PT Discharge Recommendations Home with Assistance Equipment Needed for Home Before FWW if not safe with 4WW Discharge Transportation Needs at Discharge Private Vehicle
--- NOTE | 2021-02-12 15:16 | PC.NURSE ---
Day shift: Pt is lying flat and denies any pain, nausea, or light headedness. BP 105/55. HR 95. O2 96% 1L NC. Bed alarm is on. Call light in reach. WIll continue to monitor.
--- NOTE | 2021-02-12 15:43 | PC.NURSE ---
Day shift: Pt using CPAP now w/ 2L O2 bleed in. BP better at 115/56. HR 95. O2 92%. Pt supine with HOB approx 15 degrees. Melissa remains patent. Pt denies any pain or discomfort. WIll continue to monitor.
--- NOTE | 2021-02-12 16:54 | PC.NURSE ---
Day shift: Pt remains on 3L NC and O2 94%. Encouraged to deep breath and cough as well as use I.S. as directed. On RA she desats into the mid 80's at this time. Denies any pain or nausea at this time as well. Call light in reach. Bed alarm is on. Torres remains patent with approx 400 mls clear yellow output.
[2021-02-12] MEDS: SENNOSIDES 8.6 MG TABLET 17.2 MG PO (20:23)
[2021-02-12] MEDS: OXYCODONE IR 5 MG TABLET PO (23:22)
[2021-02-13 01:00] VITALS: BP 94/45; PULSE 101; RESP 16; TEMP 37; O2SAT 96
--- NOTE | 2021-02-13 01:00 | PC.NURSE ---
Patient removing CPAP, desats to high 80's on RA. Placed on 2L O2 via nasal canula, sat at 95%. Torres patent, draining clear, yellow urine. Patient reported 6/10 pain, oxycodone given per order, repositioned and applied ice pack.
[2021-02-13 05:14] VITALS: BP 108/48; PULSE 74; RESP 17; TEMP 36.6; O2SAT 96
[2021-02-13] MEDS: LEVOTHYROXINE 75 MCG TABLET PO (05:23)
[2021-02-13] MEDS: ACETAMINOPHEN 325 MG TABLET 650 MG PO ×3 (05:23→18:20)
--- NOTE | 2021-02-13 07:35 | P.PN_ITS ---
Subjective Subjective Date Patient Seen: 02/13/21 Time Patient Seen: 07:35 Interval history: Patient is complaining of mild low back pain. She is very sleepy this morning is having a difficult time holding conversation. She denies any new numbness or tingling. Her is available to help her at home when she is safe to be discharged. Exam Vital Signs (past 8 hours): - 02/13/21 01:00 02/13/21 05:14 Temperature 98.6 F 97.9 F Pulse Rate 101 H 74 Respiratory Rate 16 17 Blood Pressure 94/45 L 108/48 L Pulse Oximetry 96 96 Oxygen Delivery Method CPAP Oxygen Flow Rate 2 Narrative Exam Narrative: Pleasant 75-year-old female, sleeping in her chair, no acute distress. She is very sleepy and is having a difficult time holding conversation. Dressing demonstrates times not drainage on the left lateral incision. No surrounding erythema or induration. Bilateral lower extremity motor function is grossly intact. Sensation is grossly intact to light touch in bilateral lower extremities. Calves are soft, nontender to palpation. Objective Labs Result Diagrams: 02/12/21 06:52 Labs: Laboratory Results - last 24 hr 02/12/21 06:52 Hgb 11.6 L Hct 35.6 L PFSH Medical History Anxiety Arthritis Asthma Depression Easy bruisability Fusion of spine of cervical region (2014) IRAM (generalized anxiety disorder) HTN (hypertension) Hypothyroid ROVERTO on CPAP Patellar fracture (2009) Sciatica Scoliosis Spinal stenosis of lumbar region with radiculopathy Spondylolisthesis Surgical History History of hysterectomy (1988) History of total left knee replacement History of total right knee replacement Hx of colonoscopy Hx of sinus surgery Social History household members: spouse Smoking Status: Never smoker alcohol intake: current Assessment & Plan Post-op Postoperative Procedures: Procedures Operation Date: 02/11/21 08:45 Actual Procedure Side Surgeon p Right L3-4, L4-5 TLIF with posterior instrumentation - Robot Eda Yuan MD Postoperative day: 2 Postoperative status narrative: Stable status post TLIF Postoperative plan narrative: -mobilize with PT. Limit bending, lifting, twist ing. Weightbearing as tolerated front wheel walker -continue with current pain regimen. -mildly hypertensive, hold BP meds this morning -disposition likely home tomorrow. The patient is still very sleepy and has not worked much with physical therapy. She is still on oxygen, and has catheter in. Overall, she is progressing slowly. Quality VTE Deep Vein Thrombosis/Pulmonary Embolism Present on Admission: No
[2021-02-13 07:50] VITALS: BP 86/41; PULSE 85; RESP 16; TEMP 36.1; O2SAT 99
[2021-02-13] MEDS: PREGABALIN 75 MG CAPSULE PO (08:17)
[2021-02-13] MEDS: NORTRIPTYLINE 10 MG CAPSULE PO ×2 (08:17→20:24)
[2021-02-13] MEDS: SODIUM CHLORIDE 0.9% FLUSH 10 ML IV ×2 (08:17→21:00)
[2021-02-13] MEDS: MAGNESIUM HYDROXIDE 30 ML UDC PO (08:17)
[2021-02-13] MEDS: VENLAFAXINE ER 75 MG CAP 150 MG PO (08:17)
[2021-02-13] MEDS: DOCUSATE 100 MG CAPSULE PO ×2 (08:17→20:24)
[2021-02-13 11:00] VITALS: O2SAT 98
--- NOTE | 2021-02-13 11:02 | PT.IPTN ---
Current Diagnoses Other secondary scoliosis, lumbar region (02/12/21) Spondylolisthesis, lumbar region (02/12/21) Spinal stenosis, lumbar region without neurogenic claudication (02/12/21) Surgery Performed Operation Date: 02/11/21 08:45 Actual Procedures p Right L3-4, L4-5 TLIF with posterior instrumentation - Robot - Eda Yuan MD Physical Therapy Treatment Note M2 PT-IP Current Condition Start: 02/12/21 13:32 Freq: NEEDED Status: Active Protocol: Document 02/12/21 09:40 AB (Rec: 02/12/21 13:57 AB [id number]) Physical Therapy Current Condition Current Condition Evaluation Date 02/12/21 Treatment Diagnosis s/p L3-4,L4-5 TLIF; difficulty in walking Onset Date 02/11/21 M3 PT-IP Subjective Start: 02/12/21 13:32 Freq: NEEDED Status: Active Protocol: Document 02/13/21 10:46 KS (Rec: 02/13/21 12:41 KS [id number]) Subjective Physical Therapy Visit Type Type Treatment Note Visit Start Time 10:46 Visit Stop Time 11:02 Total Visit Minutes 16 Notes RN present during tx. Number of FINANCIAL ASSOCIATE Visits 2 Physical Therapy Visit Comments Patient Comments agreeable to do PT M4 PT-IP Mobility and Gait Start: 02/12/21 13:32 Freq: NEEDED Status: Active Protocol: Document 02/13/21 10:46 KS (Rec: 02/13/21 12:41 KS [id number]) PT-Bed Mobility Assessment Rolling Type of Rolling Log Rolling Level of Assist Moderate Assistance Supine to Sit Supine to Sit Moderate Assistance,1 Person Assistance PT-Transfer Assessment Sit to and From Stand Sit to and from Stand Moderate Assistance,2 Person Assistance,Use of Upper Extremities Equipment Transfer Assistive Device Front Wheeled Walker Orthotic/Prosthetic Devices or Brace: No Transfers Transfer Destination Bed Transfer Technique Stand Step Pivot Transfer Ability Level of Assist Moderate Assistance,1 Person Assistance,Use of Upper Extremities Comments Mobility Comments Pt in chair upon arrival from PT and RN and agreeable to get back to bed. BP 87/49 in sitting. Pt sit<>stand Mod A x2 w/ FWW and performed stand step pivot Mod A x2 w/ cues from chair to bed, Mod A for stand<>sit. Pt able to scoot back in bed CGA. Mod A for sit <>sidelying and logroll back into bed. Once in bed, pt positioned in trendelenberg to improve BP and was then 115/ 48. Pt left in room w/ RN and all needs in reach. Gait Assessment Comments Gait Comments Unsafe due to low BP. PT-Balance Assessment Sitting Balance and Reactions Static Sitting Balance Ability Good Dynamic Sitting Balance Ability Fair Standing Balance and Reactions Static Standing Balance Ability Fair Dynamic Standing Balance Ability Poor Device Used FWW M5 PT-IP Objective Assessments Start: 02/12/21 13:32 Freq: NEEDED Status: Active Protocol: Document 02/12/21 09:40 AB (Rec: 02/12/21 13:57 AB [id number]) Orientation Orientation/Cognition Level of Alertness Alert Orientation Name,Place,Situation Safety Awareness Decreased Safety Awareness Memory Description Short Term Impaired Gross Range of Motion Lower Extremity ROM Assessment Within Functional Limits Strength Lower Extremity Strength Hip 4-/5 Knee 4-/5 Coordination Assessment Gross Coordination Gross Coordination WNL Sensation Assessment Sensation Gross Sensation WNL Muscle Tone Muscle Tone WNL Yes M6 PT-IP Treatment Start: 02/12/21 13:32 Freq: NEEDED Status: Active Protocol: Document 02/13/21 10:46 KS (Rec: 02/13/21 12:41 KS [id number]) Physical Therapy Treatment Education Education Provided Precautions,Weight Bearing Status,Post-Op Packet,Safety M7 PT-IP Assessment and Plan Start: 02/12/21 13:32 Freq: NEEDED Status: Active Protocol: Document 02/13/21 10:46 KS (Rec: 02/13/21 12:41 KS [id number]) PT Summary Assessment and Plan Potential Rehabilitation Potential Good Status of Condition at Evaluation Evolving Summary Impairments Pain,ROM,Strength,Balance, Coordination,Sensation,Tone, Cognition,Bed Mobility, Transfers,Gait,Activity Tolerance Progress Towards Goals Slow Progress due to Medical Issues Assessment Summary Pt is limited in mobilty due to low BP and weakness. Mod A x2 for sit<>stand and stand step pivot w/ FWW. Mod A x1 for bed mobility and logroll. Anticipating pt will mobilize better when BP issues resolve and will conduct caregiver training when appropriate. Goals Bed Mobility Goal Standby Assistance Transfer Goal Standby Assistance,Front Wheeled Walker Gait Goal Standby Assistance,Front Wheel Walker Gait Distance 150 Other Goals up/down 1 steps using 4WW/FWW SBA up/down 20 steps R rail SBA Days to Meet Goals 5 Frequency of Treatment Frequency Of Treatment Twice a Day Treatment Plan Physical Therapy Treatment Plan Bed Mobility Training,Transfer Training,Gait Training, Therapeutic Exercise,Balance Retraining,Post Op Education, Discharge Planning,Hot or Cold Pack,Neuromuscular Re-ed, Coordination Retraining,Manual Therapy Other Recommendations and Next Treatment ambulation, stair climbing Focus when appropriate, log roll bed mobility Precautions Lumbar Precautions Log Roll,No Twisting,Limit Bending,Lifting Restriction of 10 lbs,Gait Belt above Incisional Area Recommendations To Nursing Amount of Assist Needed 1 Person Assist Discharge Recommendations PT Discharge Recommendations Home with Assistance Equipment Needed for Home Before FWW if not safe with 4WW Discharge Transportation Needs at Discharge Private Vehicle
--- NOTE | 2021-02-13 13:11 | OT.IP.TRT ---
Current Diagnoses Other secondary scoliosis, lumbar region (02/12/21) Spondylolisthesis, lumbar region (02/12/21) Spinal stenosis, lumbar region without neurogenic claudication (02/12/21) Surgery Performed Operation Date: 02/11/21 08:45 Actual Procedures p Right L3-4, L4-5 TLIF with posterior instrumentation - Robot - Eda Yuan MD Occupational Therapy Treatment Note M2 OT-IP Current Condition Start: 02/12/21 13:02 Freq: Status: Active Protocol: Document 02/12/21 13:02 [facility] (Rec: 02/12/21 13:20 [facility] [id number]) Occupational Therapy Current Condition Current Condition Evaluation Date 02/12/21 Treatment Diagnosis S/P R L3-4, L4-5 TLIF Post Operative Precautions Lumbar Precautions Log Roll,No Twisting,Limit Bending,Lifting Restriction of 10 lbs,Gait Belt above Incisional Area M3 OT- IP Subjective and Pain Start: 02/12/21 13:02 Freq: Status: Active Protocol: Document 02/13/21 12:40 [facility] (Rec: 02/13/21 13:30 [facility] [id number]) OT- Subjective Occupational Therapy Visit Type Type Treatment Note Visit Start Time 12:40 Visit Stop Time 13:11 Total Visit Minutes 31 Occupational Therapy Visit Comments Patient Comments Pt willing to try to get up and wanting to brush her teeth. Patient/Caregiver Goals TO go home, but now thinking may need a back up plan. OT Pain Assessment Pain When Pain Assessed At Rest Pain Present Pain Present Denied Pain M4 OT- IP ADL's Start: 02/12/21 13:02 Freq: Status: Active Protocol: Document 02/13/21 12:40 [facility] (Rec: 02/13/21 13:30 [facility] [id number]) OT ADL-Oral Care General Eval Oral Care Ability Independent Areas of Assistance Retrieving/Set-Up of Items Comments Oral Care Comments Pt able to do while sitting on the edge of the bed. OT ADL-Dressing General Eval Lower Body Dressing Ability Maximum Assistance Areas Needing Assistance Socks OT ADL-Toileting Comments OT Toileting Comments Torres in place. M5 OT- IP IADL's Start: 02/12/21 13:02 Freq: Status: Active Protocol: Document 02/12/21 13:02 [facility] (Rec: 02/12/21 13:20 [facility] [id number]) OT-Instrumental Activities of Daily Living Home Safety Awareness Home Safety Comments Pt's to assist pt for all needs. Pt is a bit groggy from pain medications, forgetful and would benefit from 18/10 available assist at this time. M6 OT- IP Functional Cognition Start: 02/12/21 13:02 Freq: Status: Active Protocol: Document 02/13/21 12:40 [facility] (Rec: 02/13/21 13:30 [facility] [id number]) Cognitive Factors Limiting Selfcare Function Cognitive Ability Level of Alertness Alert,Drowsy Patient Orientation Name,Place,Situation Attention Span Ability Capable of Focused Attention, Capable of Sustained Attention Ability to Follow Commands Able to Follow One Step Commands with Increased Time, Able to Follow One Step Commands with Repetition Safety Awareness Decreased Ability to Apply Precautions,Underestimates Need for Assistance Cognitive Comments Cognitive Assessment Comments Pt needing assist to recall back precautions. When given pt visual examples of ADL tasks, pt able to identify what back precautions was being broken. Pt having difficulty to use the phone to call her and therapist used her cell phone to call her to set up caregiver training for Tuesday at 10:30AM. M7 OT- IP Mobility and Balance Start: 02/12/21 13:02 Freq: Status: Active Protocol: Document 02/13/21 12:40 [facility] (Rec: 02/13/21 13:30 [facility] [id number]) OT- Bed Mobility Assessment Rolling Type of Rolling Roll to Right Level of Assistance Moderate Assistance Supine to Sit Supine to Sit Assist Moderate Assistance,1 Person Assistance,Bedrails Sit to Supine Sit to Supine Assist Moderate Assistance,1 Person Assistance Scooting Scooting to Edge of Bed Moderate Assistance,1 Person Assistance OT-Transfer Assessment Sit to and From Stand Sit to and from Stand Moderate Assistance Comments Mobility Comments Pt able to stand with MODA X 1 to FWW and take a few step up to the head of the bed and assist to help get her legs back into bed. OT- Balance Assessment Sitting Balance and Reactions Static Sitting Balance Ability Good Dynamic Sitting Balance Ability Good Standing Balance and Reactions Static Standing Balance Ability Fair M8 OT- IP Objective Assessments Start: 02/12/21 13:02 Freq: Status: Active Protocol: Document 02/12/21 13:02 [facility] (Rec: 02/12/21 13:20 [facility] [id number]) OT- Coordination Assessment Comments Coordination Comments Arthritic changes in her hands . OT-Muscle Tone Assessment Muscle Tone WNL Yes M9 OT- IP Assessment and Plan Start: 02/12/21 13:02 Freq: Status: Active Protocol: Document 02/13/21 12:40 [facility] (Rec: 02/13/21 13:30 [facility] [id number]) OT Summary Assessment and Plan Potential Rehabilitation Potential Good Analytic Complexity at Evaluation Low Summary OT Impairments Pain,Balance,Functional Cognition,Functional Mobility, Grooming,Dressing,Toileting, Bathing,Toilet Transfers, Shower Transfers,Activity Tolerance Progress Towards Goals Slow Progress due to Pain,Slow Progress due to Cognition Assessment Summary Pt still a bit groggy and needing MODA X1 with FWW to get up. Pt BP 108/57 supine, sitting 113/51 and 113/44. Able to call pt's to come to caregiver training at 10:30AM tomorrow. Goals Grooming Goal Independent Dressing Goal Independent Toileting Goal Independent Bathing Goal Standby Assistance Toilet Transfer Goal Independent Shower Transfer Goal Independent Patient/Caregiver Education Goal Demonstrate Post-Op Precautions,Caregiver Independent Assisting Patient Days to Meet Goals 10 Frequency of Treatment Frequency Of Treatment Once a Day Treatment Plan OT Treatment Plan ADL Training,Functional Cognition Training,Functional Mobility,Patient/Family Education,Discharge Planning Other Treatment Recommendations and Next shower if able Treatment Focus Discharge Recommendations OT Discharge Recommendations Home with 18/10 Assist Available Home Equipment Needs BSC, shower chair, HHPS Transportation Needs at Discharge Private Vehicle
--- NOTE | 2021-02-13 14:45 | PC.NURSE ---
Day shift: LIZBETH Gonzalez updated this afternoon. Pt remains tired and somewhat sedated acting. She awakens to voice and answers questions proper but does so slowly. CMS intact and equal strength BLE's and BUE's. VS WNL. On 1L NC with o2 of 98%. Per Lisa Pt's Lyrica was not given (1500) dose. Pt has been given only Tylenol today. AM dose of Lyrica was given and BP med not given per LIZBETH Gonzalez. Call light in reach. Bed alarm is on.
--- NOTE | 2021-02-13 15:29 | PC.NURSE ---
Day shift: Per LIZBETH Gonzalez this AM ok for Torres cath to remain in place until Pt's mobility is more improved.
--- NOTE | 2021-02-13 15:35 | PT.IPTN ---
Current Diagnoses Other secondary scoliosis, lumbar region (02/12/21) Spondylolisthesis, lumbar region (02/12/21) Spinal stenosis, lumbar region without neurogenic claudication (02/12/21) Surgery Performed Operation Date: 02/11/21 08:45 Actual Procedures p Right L3-4, L4-5 TLIF with posterior instrumentation - Robot - Eda Yuan MD Physical Therapy Treatment Note M2 PT-IP Current Condition Start: 02/12/21 13:32 Freq: NEEDED Status: Active Protocol: Document 02/12/21 09:40 AB (Rec: 02/12/21 13:57 AB [id number]) Physical Therapy Current Condition Current Condition Evaluation Date 02/12/21 Treatment Diagnosis s/p L3-4,L4-5 TLIF; difficulty in walking Onset Date 02/11/21 M3 PT-IP Subjective Start: 02/12/21 13:32 Freq: NEEDED Status: Active Protocol: Document 02/13/21 15:05 KS (Rec: 02/13/21 16:07 KS [id number]) Subjective Physical Therapy Visit Type Type Treatment Note Visit Start Time 15:05 Visit Stop Time 15:35 Total Visit Minutes [address]OR Visits 3 Physical Therapy Visit Comments Patient Comments agreeable to do PT M4 PT-IP Mobility and Gait Start: 02/12/21 13:32 Freq: NEEDED Status: Active Protocol: Document 02/13/21 15:05 KS (Rec: 02/13/21 16:07 KS [id number]) PT-Bed Mobility Assessment Rolling Type of Rolling Log Rolling Level of Assist Moderate Assistance Supine to Sit Supine to Sit Moderate Assistance,1 Person Assistance Sit to Supine Sit to Supine Moderate Assistance,1 Person Assistance,Bedrails Scooting Scooting to Edge of Bed Contact Guard Assistance Scooting Up and Down in Bed Maximum Assistance PT-Transfer Assessment Sit to and From Stand Sit to and from Stand Contact Guard Assistance, Minimal Assistance,1 Person Assistance,Use of Upper Extremities Equipment Transfer Assistive Device Gait Belt,Front Wheeled Walker Orthotic/Prosthetic Devices or Brace: No Transfers Transfer Destination Bed Transfer Ability Level of Assist Moderate Assistance,1 Person Assistance,Use of Upper Extremities Comments Mobility Comments Pt in bed upon arrival from therapy and BP: 109/41 in supine. Cues to recall spinal precautions. Mod A and cues for logroll to R and Mod A for sidelying<>sit. Once sitting EOB, pts BP: 115/44. Pt then sit<>stand w/ FWW Min A and cues and BP: 105/54, pt denied dizziness or lightheadedness. Pt able to perform [address] and Min A stand<>sit. She then performed 2 more sit<>stands CGA and short bouts of marching in place each time. She then expressed fatigue. Mod A for sit<>sidelying and logroll back into bed. BP: 104/47 in supine and pt left in bed w/ all needs in reach and alarm on. Gait Assessment Comments Gait Comments Unsafe due to low BP. Performed marching in place 15 seconds x3 w/ FWW. Quick approach to fatigue. Stair Climbing Assessment Comments Stair Climbing Comments Not assessed, pt has 1 STANISLAV. PT-Balance Assessment Sitting Balance and Reactions Static Sitting Balance Ability Good Dynamic Sitting Balance Ability Fair Standing Balance and Reactions Static Standing Balance Ability Fair Dynamic Standing Balance Ability Poor Device Used FWW M5 PT-IP Objective Assessments Start: 02/12/21 13:32 Freq: NEEDED Status: Active Protocol: Document 02/12/21 09:40 AB (Rec: 02/12/21 13:57 AB [id number]) Orientation Orientation/Cognition Level of Alertness Alert Orientation Name,Place,Situation Safety Awareness Decreased Safety Awareness Memory Description Short Term Impaired Gross Range of Motion Lower Extremity ROM Assessment Within Functional Limits Strength Lower Extremity Strength Hip 4-/5 Knee 4-/5 Coordination Assessment Gross Coordination Gross Coordination WNL Sensation Assessment Sensation Gross Sensation WNL Muscle Tone Muscle Tone WNL Yes M6 PT-IP Treatment Start: 02/12/21 13:32 Freq: NEEDED Status: Active Protocol: Document 02/13/21 15:05 [place] (Rec: 02/13/21 16:07 MI [id number]) Physical Therapy Treatment Education Education Provided Precautions,Weight Bearing Status,Post-Op Packet,Safety Other Treatments Other Treatment Performed Unable to recall at beginning of treatment, Able to recall 2 /3 precautions (no twisting) following treatment and reminders at beginning of treatment. M7 PT-IP Assessment and Plan Start: 02/12/21 13:32 Freq: NEEDED Status: Active Protocol: Document 02/13/21 15:05 KS (Rec: 02/13/21 16:07 MI [id number]) PT Summary Assessment and Plan Potential Rehabilitation Potential Good Status of Condition at Evaluation Evolving Summary Impairments Pain,ROM,Strength,Balance, Coordination,Sensation,Tone, Cognition,Bed Mobility, Transfers,Gait,Activity Tolerance Progress Towards Goals Slow Progress due to Medical Issues Assessment Summary Pt demonstrated some increase in tolerance for activity this PM and BP still low but more stable. Mod A and cues for logroll and sup<>sit, Min A for frist sit<>stand, CGA for 2nd and 3rd sit<>stand. Able to tolerate ~[address] with each stance prior to verbalizing fatigue. Mod A for sit<>sup. Anticipating pt to feel better and be able to tolerate caregiver and hopefully stair training 02/14 at 10:30 am w/ her . If unable, pt may require SNF. Goals Bed Mobility Goal Standby Assistance Transfer Goal Standby Assistance,Front Wheeled Walker Gait Goal Standby Assistance,Front Wheel Walker Gait Distance 150 Other Goals up/down 1 steps using 4WW/FWW SBA up/down 20 steps R rail SBA Days to Meet Goals 5 Frequency of Treatment Frequency Of Treatment Twice a Day Treatment Plan Physical Therapy Treatment Plan Bed Mobility Training,Transfer Training,Gait Training, Therapeutic Exercise,Balance Retraining,Post Op Education, Discharge Planning,Hot or Cold Pack,Neuromuscular Re-ed, Coordination Retraining,Manual Therapy Other Recommendations and Next Treatment ambulation, stair climbing Focus when appropriate, log roll bed mobility Precautions Lumbar Precautions Log Roll,No Twisting,Limit Bending,Lifting Restriction of 10 lbs,Gait Belt above Incisional Area Recommendations To Nursing Amount of Assist Needed 1 Person Assist Discharge Recommendations PT Discharge Recommendations Home with Assistance Equipment Needed for Home Before FWW if not safe with 4WW Discharge Transportation Needs at Discharge Private Vehicle
[2021-02-13 19:52] VITALS: PULSE 96; RESP 18; O2SAT 97
[2021-02-13 20:00] VITALS: BP 95/47; PULSE 96; RESP 18; TEMP 36.6; O2SAT 98
[2021-02-13] MEDS: SENNOSIDES 8.6 MG TABLET 17.2 MG PO (20:24)
[2021-02-14] VITALS (7 sets, daily range): BP systolic 105–150; BP diastolic 50–77; PULSE 78–110; RESP 16–18; TEMP 36.3–37.7; O2SAT 92–95
[2021-02-14] MEDS: ACETAMINOPHEN 325 MG TABLET 650 MG PO ×5 (00:31→23:38)
[2021-02-14] MEDS: LEVOTHYROXINE 75 MCG TABLET PO (06:26)
[2021-02-14] MEDS: SUMAtriptan 25 MG TABLET 100 MG PO (06:56)
[2021-02-14] MEDS: DOCUSATE 100 MG CAPSULE PO ×2 (09:23→20:47)
[2021-02-14] MEDS: NORTRIPTYLINE 10 MG CAPSULE PO ×2 (09:23→20:47)
[2021-02-14] MEDS: lisinopriL 20 MG TABLET PO (09:23)
[2021-02-14] MEDS: SODIUM CHLORIDE 0.9% FLUSH 10 ML IV ×2 (09:24→20:48)
[2021-02-14] MEDS: VENLAFAXINE ER 75 MG CAP 150 MG PO (09:24)
[2021-02-14] MEDS: LORATADINE 10 MG TABLET PO (09:25)
[2021-02-14] MEDS: PREGABALIN 75 MG CAPSULE PO ×3 (10:37→20:47)
--- NOTE | 2021-02-14 10:43 | PM.DS.1 ---
History of Present Illness History of Present Illness Date Patient Seen: 02/14/21 Time Patient Seen: 10:43 Chief complaint: Low back pain s/p TLIF Narrative: The patient is complaining of moderate low back pain this morning. She is very sensitive to medications. She is typically on Lyrica and has recently had an increased dosage. She notes she has difficulty finding words with this increase dosage. Her prescribing physician is aware of this. She denies any new numbness or tingling. Discharge Providers Provider Date of admission: 02/12/21 09:19 Discharge Date: 02/14/21 Primary care physician: Eugenio Healy MD Consults: 02/11/21 15:00 Consult to Occupational Therapy Evaluate & Treat Comment: Physician Instructions: Evaluate and treat Consult to Physical Therapy Evaluate & Treat Comment: Physician Instructions: Evaluate and Treat 02/11/21 16:32 Consult to Dietitian, Adult Routine Comment: Reason For Exam: diabetic diet Discharge provider: Lisa Guzman PA-C Exam Vital Signs (past 8 hours): - 02/14/21 05:58 02/14/21 06:06 02/14/21 08:25 Temperature 98.6 F 98.4 F Pulse Rate 78 110 H 98 H Respiratory Rate 16 18 17 Blood Pressure 146/67 H 131/54 L Pulse Oximetry 93 94 02/14/21 09:17 Temperature Pulse Rate 97 H Respiratory Rate Blood Pressure Pulse Oximetry 94 Oxygen Delivery Method Room Air Oxygen Flow Rate 0 Narrative Exam Narrative: Pleasant 75-year-old female, resting comfortably in her chair, no acute distress. Dressing demonstrates some scant drainage on the left lateral incision. Bilateral lower extremity motor function is grossly intact, sensation is grossly intact to light touch. Calves are soft, nontender palpation. Objective Labs Result Diagrams: 02/12/21 06:52 [facility] Medical History Anxiety Arthritis Asthma Depression Easy bruisability Fusion of spine of cervical region (2014) IRAM (generalized anxiety disorder) HTN (hypertension) Hypothyroid ROVERTO on CPAP Patellar fracture (2009) Sciatica Scoliosis Spinal stenosis of lumbar region with radiculopathy Spondylolisthesis Surgical History History of hysterectomy (1988) History of total left knee replacement History of total right knee replacement Hx of colonoscopy Hx of sinus surgery Social History household members: spouse Smoking Status: Never smoker alcohol intake: current Discharge Assessment & Plan Assessment and Plan Assessment: Stable status post TLIF Plan of Treatment: -mobilize with PT. Limit bending, lifting, twisting. Weightbearing as tolerated with front wheel walker -continue with current pain regimen. She is very sensitive to home medications and we are having a difficult time finding something that works well for her. She is on a able to take tramadol because of her SSRIs, and has sensitivity with all codeine products. -DC home when cleared by PT Discharge Plan Discharge Plan Patient Disposition: Home Discharge orders & Medications Prescriptions: New acetaminophen 500 mg capsule 500 mg PO Q4H PRN (Reason: fever or pain) Qty: 90 0RF oxycodone 5 mg Tablet See Rx Instructions .ROUTE .COMPLEX PRN (Reason: Pain, Moderate (4-6)) Qty: 20 0RF Rx Instructions: 0.5-1 tablet by mouth as needed for severe postoperative pain Continued meloxicam 15 mg Tablet 15 mg PO DAILY 0RF nortriptyline 10 mg Capsule 10 mg PO BID 0RF albuterol sulfate 90 mcg/actuation Hfa Aerosol Inhaler 1 - 2 inh INHALATION Q4-6H PRN (Reason: Shortness Of Breath) 0RF levothyroxine 75 mcg Tablet 75 mcg PO DAILY 0RF loratadine-pseudoephedrine [Claritin-D 24 Hour] 10-240 mg Tablet Extended Release 24 Hr 1 tab PO Q OTHER DAY 0RF pregabalin [Lyrica] 75 mg Capsule 75 mg PO TID 0RF venlafaxine 150 mg capsule,extended release 24hr 150 mg PO DAILY 0RF benazepril 10 mg tablet 20 mg PO DAILY 0RF rizatriptan 10 mg tablet 10 mg PO ONCE PRN (Reason: Migraine Headache) 0RF Rx Instructions: may repeat once after at least 2 hours Discontinued acetaminophen 500 mg PO TID 0RF Follow up/Referrals: Eugenio Healy MD [Primary Care Provider] - Eda Yuan MD [Physician] - (10-14 days for postoperative visit) Diet/Activity/Treatments Diet: Diet as Tolerated and Regular Other treatments: Medications: -OTC Tylenol 500 mg 1 tablet every 4 hours as needed for pain/fever. Max 6 tablets per day. -Oxycodone 5 mg take 0.5-1 tablet every 4 hours as needed for moderate-severe pain (narcotic pain medication). -As needed medications: -Ducolax and /or MiraLax as needed for constipation from narcotic pain medications. -Pepcid AC as needed for stomach upset. Dressing/Wound care: -Keep dressing in place until postoperative follow-up office visit. -Okay to shower. Keep wound out of direct water stream. Can use PressNSeal plastic wrap to protect from shower stream. No soaking or submerging until all the scabs fall off (approximately 6 weeks). -Please call the office if dressing becomes wet, soiled, or saturated. Activities: -Limit bending, lifting, twisting. -Weight-bearing as tolerated. Use front wheeled walker, and progress to cane when safe. -Continue with home exercises as directed by your physical therapist. -Ice your incision as needed for pain/inflammation/swelling. Protect your skin with a folded pillowcase. Follow-up: -Follow-up with your surgeon or PA in the office in 10-14 days after surgery. -Follow-up with your surgeon 6 weeks postoperatively. Call the office if you have chest pain, shortness of breath, significant swelling that will not resolve with elevating, fever over 101?, significantly worsening pain. [facility] Orth[facility]: [phone] Skin/Wound/Dressing Care Report to your healthcare provider any signs of infection, such as:: chills, fever, night sweats, unusual drainage and unusual redness Visit Report/Discharge Packet Instructions: DI for Prescription Opioid Use, DI for Transforaminal Lumbar Interbody Fusion Stand Alone Forms: Surgery Discharge Discharge Data Primary Care Provider: Eugenio Healy Attending Provider: Eda Yuan VTE Deep Vein Thrombosis/Pulmonary Embolism Present on Admission: No
--- NOTE | 2021-02-14 11:01 | PT.IPTN ---
Current Diagnoses Other secondary scoliosis, lumbar region (02/12/21) Spondylolisthesis, lumbar region (02/12/21) Spinal stenosis, lumbar region without neurogenic claudication (02/12/21) Surgery Performed Operation Date: 02/11/21 08:45 Actual Procedures p Right L3-4, L4-5 TLIF with posterior instrumentation - Robot - Eda Yuan MD Physical Therapy Treatment Note M2 PT-IP Current Condition Start: 02/12/21 13:32 Freq: NEEDED Status: Active Protocol: Document 02/12/21 09:40 AB (Rec: 02/12/21 13:57 AB [id number]) Physical Therapy Current Condition Current Condition Evaluation Date 02/12/21 Treatment Diagnosis s/p L3-4,L4-5 TLIF; difficulty in walking Onset Date 02/11/21 M3 PT-IP Subjective Start: 02/12/21 13:32 Freq: NEEDED Status: Active Protocol: Document 02/14/21 10:32 KS (Rec: 02/14/21 11:38 KS [id number]) Subjective Physical Therapy Visit Type Type Treatment Note Visit Start Time 10:32 Visit Stop Time 11:01 Total Visit Minutes 29 Number of ELECTRONIC SCANNER OPERATOR Visits 4 Physical Therapy Visit Comments Patient Comments agreeable to do PT. Spouse present for caregiver training . Co-treat w/ OT. M4 PT-IP Mobility and Gait Start: 02/12/21 13:32 Freq: NEEDED Status: Active Protocol: Document 02/14/21 10:32 KS (Rec: 02/14/21 11:38 KS [id number]) PT-Bed Mobility Assessment Rolling Type of Rolling Log Rolling Level of Assist Moderate Assistance Supine to Sit Supine to Sit Moderate Assistance,1 Person Assistance Sit to Supine Sit to Supine Moderate Assistance,1 Person Assistance,Bedrails Scooting Scooting to Edge of Bed Contact Guard Assistance Scooting Up and Down in Bed Maximum Assistance PT-Transfer Assessment Sit to and From Stand Sit to and from Stand Moderate Assistance,1 Person Assistance,Use of Upper Extremities Equipment Transfer Assistive Device Gait Belt,Front Wheeled Walker Orthotic/Prosthetic Devices or Brace: No Transfers Transfer Destination Bed Transfer Technique Pt ambulated w/ FWW. Transfer Ability Level of Assist Moderate Assistance,1 Person Assistance,Use of Upper Extremities Comments Mobility Comments Pt on BSC w/ spouse in room upon arrival from PT and OT. Educated pts spouse on gait belt application. Pt sit<> stand Mod A w/ cues. Pt denied dizziness. She then ambulated ~5 ft and requested to sit down do to fatigue. She required Mod A for ambulation and was unable to manage FWW on her own requiring Mod A. Mod A for stand<>sit for slow descent. Able to scoot hips back in bed CGA, Mod A for sit <>sidelying and logroll to maintain straight spine and for LE elevation into bed. Max A x2 for scooting up in bed. Gait Assessment Gait Gait Assistance Required: Moderate Assistance,1 Person Assist Distance (Feet) 5 Able to Maintain Weight Bearing Status Yes During Gait Assistive Devices Assistive Device Gait Belt,Front Wheeled Walker Orthotic/Prosthetic Devices or Brace: No Gait Deviations General Gait Pattern Ataxic,Decreased Stride Length ,Decreased Feet Clearance, Flexed Trunk,Wide Based Gait Factors Limiting Gait Function Factors Limiting Gait Function Decreased Activity Tolerance, Decreased Strength,Difficulty Following Directions,Limited Range of Motion,Pain,Poor Balance,Poor Safety Awareness Comments Gait Comments Pt only able to tolerate 5 ft ambulation from chair to bed, required Mod A to stand upright and for FWW management . Decreased stride and foot clerance and flexed trunk. Quick approach to fagiue due to weakness. Stair Climbing Assessment Comments Stair Climbing Comments Unsafe at this time. PT-Balance Assessment Sitting Balance and Reactions Static Sitting Balance Ability Good Dynamic Sitting Balance Ability Fair Standing Balance and Reactions Static Standing Balance Ability Fair Dynamic Standing Balance Ability Poor Device Used FWW M5 PT-IP Objective Assessments Start: 02/12/21 13:32 Freq: NEEDED Status: Active Protocol: Document 02/12/21 09:40 AB (Rec: 02/12/21 13:57 AB [id number]) Orientation Orientation/Cognition Level of Alertness Alert Orientation Name,Place,Situation Safety Awareness Decreased Safety Awareness Memory Description Short Term Impaired Gross Range of Motion Lower Extremity ROM Assessment Within Functional Limits Strength Lower Extremity Strength Hip 4-/5 Knee 4-/5 Coordination Assessment Gross Coordination Gross Coordination WNL Sensation Assessment Sensation Gross Sensation WNL Muscle Tone Muscle Tone WNL Yes M6 PT-IP Treatment Start: 02/12/21 13:32 Freq: NEEDED Status: Active Protocol: Document 02/14/21 10:32 KS (Rec: 02/14/21 11:38 KS [id number]) Physical Therapy Treatment Education Education Provided Precautions,Weight Bearing Status,Post-Op Packet,Safety Other Treatments Other Treatment Performed Attempted to complete caregiver training, but was unable due to pt still requiring Mod A for mobility, transfers, and ambulation. Until today, anticipated pt to go home w/ spouse to assist, but pts spouse is unable to provide amount of assist pt is currently needing. Both agreeable that pt will need SNF. M7 PT-IP Assessment and Plan Start: 02/12/21 13:32 Freq: NEEDED Status: Active Protocol: Document 02/14/21 10:32 KS (Rec: 02/14/21 11:38 KS [id number]) PT Summary Assessment and Plan Potential Rehabilitation Potential Good Status of Condition at Evaluation Evolving Summary Impairments Pain,ROM,Strength,Balance, Coordination,Sensation,Tone, Cognition,Bed Mobility, Transfers,Gait,Activity Tolerance Progress Towards Goals Slow Progress due to Activity Tolerance Assessment Summary Pt continues to be limited in mobility due to weakness and quick approach to fatigue. Up until this point, anticipated that pt would be able to d/c home w/ spouse to assist, however pts spouse was not able to complete caregiver training and provide amount of assist pt is currently needing. Coupled with pt requiring Mod A w/ bed mobility, transfers, and gait and spouse not being able to provide Mod A, pt is also still very weak and was only able to ambulate ~5 ft w/ FWW and therefore unable to tolerate ambulating into house from car. Pt required Mod A, max cues and FWW management during ambulation and spouse is unsafe and unable to assist her at this time. She is also having difficulty recalling precautions. Pt will require SNF to improve strength and functional mobility. Goals Bed Mobility Goal Standby Assistance Transfer Goal Standby Assistance,Front Wheeled Walker Gait Goal Standby Assistance,Front Wheel Walker Gait Distance 150 Other Goals up/down 1 steps using 4WW/FWW SBA up/down 20 steps R rail SBA Days to Meet Goals 5 Frequency of Treatment Frequency Of Treatment Twice a Day Treatment Plan Physical Therapy Treatment Plan Bed Mobility Training,Transfer Training,Gait Training, Therapeutic Exercise,Balance Retraining,Post Op Education, Discharge Planning,Hot or Cold Pack,Neuromuscular Re-ed, Coordination Retraining,Manual Therapy Other Recommendations and Next Treatment ambulation, stair climbing Focus when appropriate, log roll bed mobility Precautions Lumbar Precautions Log Roll,No Twisting,Limit Bending,Lifting Restriction of 10 lbs,Gait Belt above Incisional Area Recommendations To Nursing Amount of Assist Needed 1 Person Assist Discharge Recommendations PT Discharge Recommendations SNF Rehab Transportation Needs at Discharge Wheelchair/Cabulance
--- NOTE | 2021-02-14 11:03 | OT.IP.TRT ---
Current Diagnoses Other secondary scoliosis, lumbar region (02/12/21) Spondylolisthesis, lumbar region (02/12/21) Spinal stenosis, lumbar region without neurogenic claudication (02/12/21) Surgery Performed Operation Date: 02/11/21 08:45 Actual Procedures p Right L3-4, L4-5 TLIF with posterior instrumentation - Robot - Eda Yuan MD Occupational Therapy Treatment Note M2 OT-IP Current Condition Start: 02/12/21 13:02 Freq: Status: Active Protocol: Document 02/12/21 13:02 [facility] (Rec: 02/12/21 13:20 [facility] [id number]) Occupational Therapy Current Condition Current Condition Evaluation Date 02/12/21 Treatment Diagnosis S/P R L3-4, L4-5 TLIF Post Operative Precautions Lumbar Precautions Log Roll,No Twisting,Limit Bending,Lifting Restriction of 10 lbs,Gait Belt above Incisional Area M3 OT- IP Subjective and Pain Start: 02/12/21 13:02 Freq: Status: Active Protocol: Document 02/14/21 11:12 [facility] (Rec: 02/14/21 11:33 [facility] [id number]) OT- Subjective Occupational Therapy Visit Type Type Treatment Note Visit Start Time 10:35 Visit Stop Time 11:03 Total Visit Minutes 28 Occupational Therapy Visit Comments Patient Comments Pt's present for caregiver training today, POCKET MAKER also present for the session. Patient/Caregiver Goals Pt prior insistent on going home, but now realizes that going to skilled rehab would be best. OT Pain Assessment Pain When Pain Assessed At Rest Pain Present Pain Present Pain Reported Location Back Intensity 6 Scale Used Numeric (0 - 10) M4 OT- IP ADL's Start: 02/12/21 13:02 Freq: Status: Active Protocol: Document 02/14/21 11:12 [facility] (Rec: 02/14/21 11:33 [facility] [id number]) OT ADL-Dressing General Eval Lower Body Dressing Ability Maximum Assistance Areas Needing Assistance Socks OT ADL-Toileting Comments OT Toileting Comments Pt still having draper in place . However not moving as well now and will needing assist for brief and hygiene needs in addition to assist to help steady pt while standing. OT ADL-Bathing Comments OT Bathing Comments Pt decreased activity tolerance and shower not appropriate at this time as only able to tolerate transfer from to bed at this time. M6 OT- IP Functional Cognition Start: 02/12/21 13:02 Freq: Status: Active Protocol: Document 02/14/21 11:12 [facility] (Rec: 02/14/21 11:33 [facility] [id number]) Cognitive Factors Limiting Selfcare Function Cognitive Ability Level of Alertness Alert Patient Orientation Name,Place,Situation Attention Span Ability Capable of Focused Attention, Capable of Sustained Attention Ability to Follow Commands Able to Follow One Step Commands with Increased Time, Able to Follow One Step Commands with Repetition Safety Awareness Decreased Ability to Apply Precautions,Underestimates Need for Assistance Cognitive Comments Cognitive Assessment Comments Pt still needing reminders for back precautions as unable to recall the precautions at this time. Pt still needing reminders for safety for FWW use and to incorporate her precautions for needs. M7 OT- IP Mobility and Balance Start: 02/12/21 13:02 Freq: Status: Active Protocol: Document 02/14/21 11:12 [facility] (Rec: 02/14/21 11:33 [facility] [id number]) OT- Bed Mobility Assessment Sit to Supine Sit to Supine Assist Moderate Assistance,1 Person Assistance OT-Transfer Assessment Sit to and From Stand Sit to and from Stand Moderate Assistance Transfers Transfer Ability Moderate Assistance,1 Person Assistance Technique Transfer Destination Bed,Bedside Commode Transfer Technique Stand Step Pivot Devices Transfer Assistive Devices Gait Belt,Front Wheeled Walker Comments Mobility Comments Pt needing MODAX1 to stand to FWW and assist to steadying, assist to help guide the FWW and pt not able to walk at this time and just able to get back to the bed as quick to fatigue. POCKET MAKER able to show pt's how to danica/doff the gait belt at this time. OT- Gait Assessment Comments Gait Ability Comments Pt just able to tolerate mainly a transfer at this time. OT- Balance Assessment Sitting Balance and Reactions Static Sitting Balance Ability Good Dynamic Sitting Balance Ability Fair Standing Balance and Reactions Static Standing Balance Ability Fair M8 OT- IP Objective Assessments Start: 02/12/21 13:02 Freq: Status: Active Protocol: Document 02/12/21 13:02 [facility] (Rec: 02/12/21 13:20 [facility] [id number]) OT- Coordination Assessment Comments Coordination Comments Arthritic changes in her hands . OT-Muscle Tone Assessment Muscle Tone WNL Yes M9 OT- IP Assessment and Plan Start: 02/12/21 13:02 Freq: Status: Active Protocol: Document 02/14/21 11:12 [facility] (Rec: 02/14/21 11:33 [facility] [id number]) OT Summary Assessment and Plan Potential Rehabilitation Potential Good Analytic Complexity at Evaluation Low Summary OT Impairments Pain,Balance,Functional Cognition,Functional Mobility, Grooming,Dressing,Toileting, Bathing,Toilet Transfers, Shower Transfers,Activity Tolerance Progress Towards Goals Slow Progress due to Pain,Slow Progress due to Activity Tolerance,Slow Progress due to Cognition Assessment Summary Pt still slow to progress and decreased activity tolerance, needing constant cues for back precautions, and needing extensive assist for all ADl and mobility needs. Pt's present for caregiver training as initially pt insistent that her can assist her at home. After caregiver training, pt's feels that the pt's current function is too great for him to assist her at home at this time. Therapist, pt and all agree that pt would benefit from skilled rehab prior to going home. Pt would benefit from continued practice with ADl's and incorporation of back precautions, increasing overall activity tolerance so able to get back to her prior level of care which was MARCIA with her needs. Today pt on RA andn O2 at 93% and BP stable. Pt is very motivated, cooperative and willing to go to skilled rehab . Goals Grooming Goal Independent Dressing Goal Independent Toileting Goal Independent Bathing Goal Standby Assistance Toilet Transfer Goal Independent Shower Transfer Goal Independent Patient/Caregiver Education Goal Demonstrate Post-Op Precautions,Caregiver Independent Assisting Patient Days to Meet Goals 10 Frequency of Treatment Frequency Of Treatment Once a Day Treatment Plan OT Treatment Plan ADL Training,Functional Cognition Training,Functional Mobility,Patient/Family Education,Discharge Planning Other Treatment Recommendations and Next shower if able Treatment Focus Discharge Recommendations OT Discharge Recommendations SNF Rehab Home Equipment Needs BSC, shower chair, HHPS Transportation Needs at Discharge Private Vehicle,Wheelchair/ Cabulance
--- NOTE | 2021-02-14 15:04 | CM.DPNOTE ---
Addendum entered by THEA Damon 02/14/21 15:14: ADD: Chris Alfred P# [phone] JW Original Note: DCP Cont According to therapy team, patient is not cleared for return home w/spouse. Both patient and spouse are agreeable to SNF stay if [facility] approves, w/no SNF preference at this time. After updated PT/OT notes were completed this morning, faxed to bond runner Chris Alfred (pronounced same) and she was able to review and approve this patient for SNF stay. Faxed SNF referral to [facility] (closest to patient's home in [place], [facility]), [facility], [facility] and [facility] [place] Spoke /August at [facility] who accepted patient for admission, but had to wait until Tuesday to insure appropriate staffing for this admission. Patient's COVID vaccination card has now been copied and faxed to [facility]. In addition, COVID PCR will be updated this afternoon. Now attempting to update Ortho LIZBETH Gonzalez re: change of plan (from home to SNF Tuesday) and requested she complete SNF orders today in anticipation of SNF DC Tuesday. If not, rounding Ortho Surgeon will need to complete Plan: DC to [facility] expected Tuesday02.15.21 via w/c. P/u expected in the afternoon. GORDO completed JW
--- NOTE | 2021-02-14 15:18 | PT.IPTN ---
Current Diagnoses Other secondary scoliosis, lumbar region (02/12/21) Spondylolisthesis, lumbar region (02/12/21) Spinal stenosis, lumbar region without neurogenic claudication (02/12/21) Surgery Performed Operation Date: 02/11/21 08:45 Actual Procedures p Right L3-4, L4-5 TLIF with posterior instrumentation - Robot - Eda Yuan MD Physical Therapy Treatment Note M2 PT-IP Current Condition Start: 02/12/21 13:32 Freq: NEEDED Status: Active Protocol: Document 02/12/21 09:40 AB (Rec: 02/12/21 13:57 AB [id number]) Physical Therapy Current Condition Current Condition Evaluation Date 02/12/21 Treatment Diagnosis s/p L3-4,L4-5 TLIF; difficulty in walking Onset Date 02/11/21 M3 PT-IP Subjective Start: 02/12/21 13:32 Freq: NEEDED Status: Active Protocol: Document 02/14/21 14:57 KS (Rec: 02/14/21 16:11 KS [id number]) Subjective Physical Therapy Visit Type Type Treatment Note Visit Start Time 14:57 Visit Stop Time 15:18 Total Visit Minutes 21 Number of HEALTHCARE CONSULTING MANAGER Visits 5 Physical Therapy Visit Comments Patient Comments agreeable to do PT. M4 PT-IP Mobility and Gait Start: 02/12/21 13:32 Freq: NEEDED Status: Active Protocol: Document 02/14/21 14:57 KS (Rec: 02/14/21 16:11 KS [id number]) PT-Bed Mobility Assessment Rolling Type of Rolling Log Rolling Level of Assist Moderate Assistance Supine to Sit Supine to Sit Moderate Assistance,1 Person Assistance Scooting Scooting to Edge of Bed Moderate Assistance PT-Transfer Assessment Sit to and From Stand Sit to and from Stand Moderate Assistance,1 Person Assistance,Use of Upper Extremities Equipment Transfer Assistive Device Gait Belt,Front Wheeled Walker Orthotic/Prosthetic Devices or Brace: No Transfers Transfer Destination Chair Transfer Technique Pt ambulated w/ FWW. Transfer Ability Level of Assist Moderate Assistance,1 Person Assistance,Use of Upper Extremities Comments Mobility Comments Pt continues to require Mod A for bed mobility and transfers . Able to ambulate ~10 ft this PM w/ Mod A for FWW management and cues, but had quick approach to fatigue. Min A for stand<>sit in chair w/ cues for slow descent and hand placement. Gait Assessment Gait Gait Assistance Required: Moderate Assistance,1 Person Assist Distance (Feet) 10 Able to Maintain Weight Bearing Status Yes During Gait Assistive Devices Assistive Device Gait Belt,Front Wheeled Walker Orthotic/Prosthetic Devices or Brace: No Gait Deviations General Gait Pattern Ataxic,Decreased Stride Length ,Decreased Feet Clearance, Flexed Trunk,Wide Based Gait Factors Limiting Gait Function Factors Limiting Gait Function Decreased Activity Tolerance, Decreased Strength,Difficulty Following Directions,Limited Range of Motion,Pain,Poor Balance,Poor Safety Awareness Comments Gait Comments Pt tolerated ~10 ft ambulation w/ FWW and Mod A from bed to chair this PM. Pt is unsafe with FWW requiring frequent verbal and tactile cues. She has decreased stride and foot clearance increasing her risk for falls. Stair Climbing Assessment Comments Stair Climbing Comments Unsafe at this time. PT-Balance Assessment Sitting Balance and Reactions Static Sitting Balance Ability Good Dynamic Sitting Balance Ability Fair Standing Balance and Reactions Static Standing Balance Ability Fair Dynamic Standing Balance Ability Poor Device Used FWW M5 PT-IP Objective Assessments Start: 02/12/21 13:32 Freq: NEEDED Status: Active Protocol: Document 02/12/21 09:40 AB (Rec: 02/12/21 13:57 AB [id number]) Orientation Orientation/Cognition Level of Alertness Alert Orientation Name,Place,Situation Safety Awareness Decreased Safety Awareness Memory Description Short Term Impaired Gross Range of Motion Lower Extremity ROM Assessment Within Functional Limits Strength Lower Extremity Strength Hip 4-/5 Knee 4-/5 Coordination Assessment Gross Coordination Gross Coordination WNL Sensation Assessment Sensation Gross Sensation WNL Muscle Tone Muscle Tone WNL Yes M6 PT-IP Treatment Start: 02/12/21 13:32 Freq: NEEDED Status: Active Protocol: Document 02/14/21 14:57 KS (Rec: 02/14/21 16:11 KS [id number]) Physical Therapy Treatment Education Education Provided Precautions,Weight Bearing Status,Post-Op Packet,Safety M7 PT-IP Assessment and Plan Start: 02/12/21 13:32 Freq: NEEDED Status: Active Protocol: Document 02/14/21 14:57 KS (Rec: 02/14/21 16:11 KS [id number]) PT Summary Assessment and Plan Potential Rehabilitation Potential Good Status of Condition at Evaluation Evolving Summary Impairments Pain,ROM,Strength,Balance, Coordination,Sensation,Tone, Cognition,Bed Mobility, Transfers,Gait,Activity Tolerance Progress Towards Goals Slow Progress due to Activity Tolerance,Slow Progress - Other Assessment Summary Pt requiring Mod A for bed mobility, logroll, sit<>Stand, and ambulation this PM. She also requires frequent cues for tasks. Able to ambulate ~ 10 ft w/ FWW Mod A for FWW management. She is limited in mobility due to weakness and low tolerance for activity and does not have adequate assistance at home. She will require SNF to improve safety, strength, and functional independence. Goals Bed Mobility Goal Standby Assistance Transfer Goal Standby Assistance,Front Wheeled Walker Gait Goal Standby Assistance,Front Wheel Walker Gait Distance 150 Other Goals up/down 1 steps using 4WW/FWW SBA up/down 20 steps R rail SBA Days to Meet Goals 5 Frequency of Treatment Frequency Of Treatment Twice a Day Treatment Plan Physical Therapy Treatment Plan Bed Mobility Training,Transfer Training,Gait Training, Therapeutic Exercise,Balance Retraining,Post Op Education, Discharge Planning,Hot or Cold Pack,Neuromuscular Re-ed, Coordination Retraining,Manual Therapy Other Recommendations and Next Treatment ambulation, stair climbing Focus when appropriate, log roll bed mobility Precautions Lumbar Precautions Log Roll,No Twisting,Limit Bending,Lifting Restriction of 10 lbs,Gait Belt above Incisional Area Recommendations To Nursing Amount of Assist Needed 1 Person Assist Discharge Recommendations PT Discharge Recommendations SNF Rehab Transportation Needs at Discharge Wheelchair/Cabulance
[2021-02-14 16:06] LABS: COVID19 -Nasal RAPID Negative (Negative)
--- NOTE | 2021-02-14 18:22 | PC.NURSE ---
pt ok to take lyrica per PA. Lisa-PA aware that pt is only taking tylenol for pain. FLACC 1,pt was more oriented in the morning; however, now pt says her nephew is living next door. pt has been pleasant today. she was not sleepy during the day, but she has been more impulsive and tried to get out of bed and chair several times.
[2021-02-14] MEDS: SENNOSIDES 8.6 MG TABLET 17.2 MG PO (20:47)
[2021-02-15 00:15] VITALS: BP 134/75; PULSE 98; RESP 18; TEMP 37.2; O2SAT 96
[2021-02-15 05:20] VITALS: BP 137/60; PULSE 94; RESP 14; TEMP 36.7; O2SAT 97
[2021-02-15] MEDS: ACETAMINOPHEN 325 MG TABLET 650 MG PO ×2 (05:28→12:08)
[2021-02-15] MEDS: LEVOTHYROXINE 75 MCG TABLET PO (05:28)
[2021-02-15] MEDS: NORTRIPTYLINE 10 MG CAPSULE PO (08:52)
[2021-02-15] MEDS: VENLAFAXINE ER 75 MG CAP 150 MG PO (08:52)
[2021-02-15] MEDS: DOCUSATE 100 MG CAPSULE PO (08:52)
[2021-02-15] MEDS: lisinopriL 20 MG TABLET PO (08:52)
[2021-02-15] MEDS: SODIUM CHLORIDE 0.9% FLUSH 10 ML IV (08:52)
[2021-02-15] MEDS: PREGABALIN 75 MG CAPSULE PO (08:52)
--- NOTE | 2021-02-15 09:36 | PT.IPTN ---
Current Diagnoses Other secondary scoliosis, lumbar region (02/11/21) Spondylolisthesis, lumbar region (02/11/21) Spinal stenosis, lumbar region without neurogenic claudication (02/11/21) Surgery Performed Operation Date: 02/11/21 08:45 Actual Procedures p Right L3-4, L4-5 TLIF with posterior instrumentation - Robot - Eda Yuan MD Physical Therapy Treatment Note M2 PT-IP Current Condition Start: 02/12/21 13:32 Freq: NEEDED Status: Active Protocol: Document 02/12/21 09:40 AB (Rec: 02/12/21 13:57 AB [id number]) Physical Therapy Current Condition Current Condition Evaluation Date 02/12/21 Treatment Diagnosis s/p L3-4,L4-5 TLIF; difficulty in walking Onset Date 02/11/21 M3 PT-IP Subjective Start: 02/12/21 13:32 Freq: NEEDED Status: Active Protocol: Document 02/15/21 09:36 MA (Rec: 02/15/21 10:30 MA [id number]) Subjective Physical Therapy Visit Type Type Treatment Note Visit Start Time 09:18 Visit Stop Time 09:36 Total Visit Minutes 18 Number of CUSTOMER LIAISON Visits 6 Physical Therapy Visit Comments Patient Comments Agreeable to PT if she is able to be assisted into normal clothes when she gets up. Therapy Pain Assessment Pain When Pain Assessed During Mobility Pain Present Pain Present Pain Reported Location Back Intensity 6 Scale Used Numeric (0 - 10) Pain Management Techniques Re-positioning M4 PT-IP Mobility and Gait Start: 02/12/21 13:32 Freq: NEEDED Status: Active Protocol: Document 02/15/21 09:36 MA (Rec: 02/15/21 10:30 MA [id number]) PT-Transfer Assessment Sit to and From Stand Sit to and from Stand Minimal Assistance,1 Person Assistance,Use of Upper Extremities Equipment Transfer Assistive Device Gait Belt,Front Wheeled Walker Orthotic/Prosthetic Devices or Brace: No Transfers Transfer Destination Chair Transfer Technique Stand Step Pivot Transfer Ability Level of Assist Minimal Assistance,1 Person Assistance,Use of Upper Extremities Comments Mobility Comments Pt was in chair upon arrival and requested returning to chair vs bed. She was Min A for sit<>stand and was able to ambulate 5 ft to window CGA with gait belt and FWW. Pt was able to complete 3x sit<> stand transfers for donning clothing requiring Min A-CGA. Gait Assessment Gait Gait Assistance Required: Contact Guard Assist,1 Person Assist Distance (Feet) 5 Able to Maintain Weight Bearing Status Yes During Gait Assistive Devices Assistive Device Gait Belt,Front Wheeled Walker Orthotic/Prosthetic Devices or Brace: No Gait Deviations General Gait Pattern Ataxic,Decreased Stride Length ,Decreased Feet Clearance, Flexed Trunk,Wide Based Gait Factors Limiting Gait Function Factors Limiting Gait Function Decreased Activity Tolerance, Decreased Strength,Pain,Poor Balance,Poor Safety Awareness Comments Gait Comments Pt is able to walk 5 ft CGA toward window where she is reminded of her precautions not to bend over to reach her clothing. She is assisted with dressing in both standing and sitting positions but denies walking more once dressed. Stair Climbing Assessment Comments Stair Climbing Comments Pt refuses stairs this session . PT-Balance Assessment Sitting Balance and Reactions Static Sitting Balance Ability Good Dynamic Sitting Balance Ability Fair Standing Balance and Reactions Static Standing Balance Ability Fair Dynamic Standing Balance Ability Poor Device Used FWW M5 PT-IP Objective Assessments Start: 02/12/21 13:32 Freq: NEEDED Status: Active Protocol: Document 02/12/21 09:40 AB (Rec: 02/12/21 13:57 AB [id number]) Orientation Orientation/Cognition Level of Alertness Alert Orientation Name,Place,Situation Safety Awareness Decreased Safety Awareness Memory Description Short Term Impaired Gross Range of Motion Lower Extremity ROM Assessment Within Functional Limits Strength Lower Extremity Strength Hip 4-/5 Knee 4-/5 Coordination Assessment Gross Coordination Gross Coordination WNL Sensation Assessment Sensation Gross Sensation WNL Muscle Tone Muscle Tone WNL Yes M6 PT-IP Treatment Start: 02/12/21 13:32 Freq: NEEDED Status: Active Protocol: Document 02/15/21 09:36 MA (Rec: 02/15/21 10:30 MA [id number]) Physical Therapy Treatment Education Education Provided Precautions,Weight Bearing Status,Post-Op Packet,Safety Other Treatments Other Treatment Performed Pt is able to repeat 2/3 spinal prcautions. She forgets no lifting M7 PT-IP Assessment and Plan Start: 02/12/21 13:32 Freq: NEEDED Status: Active Protocol: Document 02/15/21 09:36 MA (Rec: 02/15/21 10:30 MA [id number]) PT Summary Assessment and Plan Potential Rehabilitation Potential Good Status of Condition at Evaluation Evolving Summary Impairments Pain,ROM,Strength,Balance, Coordination,Sensation,Tone, Cognition,Bed Mobility, Transfers,Gait,Activity Tolerance Progress Towards Goals Slow Progress due to Activity Tolerance Assessment Summary Pt requires only Min A for sit <>stand transfers this session and is able to walk 5 ft CGA with gait belt and FWW showing good improvement in mobility. She shows improved balance and is able to assist PT with donning clothing in both seated and standing positions. Pt require cues to avoid bending over to dress herself, and once dressed denies gait or stair training this session stating I know I have to do stairs which is why they are sending me to a rehab facility today. I will do more while I am there. Pt continues to be limited in activity tolerance and has a three story home. She will benefit from a SNF to increase activitly tolerance, mobility and transfers to return to home safely. Goals Bed Mobility Goal Standby Assistance Transfer Goal Standby Assistance,Front Wheeled Walker Gait Goal Standby Assistance,Front Wheel Walker Gait Distance 150 Other Goals up/down 1 steps using 4WW/FWW SBA up/down 20 steps R rail SBA Days to Meet Goals 5 Frequency of Treatment Frequency Of Treatment Twice a Day Treatment Plan Physical Therapy Treatment Plan Bed Mobility Training,Transfer Training,Gait Training, Therapeutic Exercise,Balance Retraining,Post Op Education, Discharge Planning,Hot or Cold Pack,Neuromuscular Re-ed, Coordination Retraining,Manual Therapy Other Recommendations and Next Treatment ambulation, stair climbing Focus when appropriate, log roll bed mobility Precautions Lumbar Precautions Log Roll,No Twisting,Limit Bending,Lifting Restriction of 10 lbs,Gait Belt above Incisional Area Recommendations To Nursing Amount of Assist Needed 1 Person Assist Discharge Recommendations PT Discharge Recommendations SNF Rehab Transportation Needs at Discharge Wheelchair/Cabulance
[2021-02-15 11:26] VITALS: BP 131/68; PULSE 92; RESP 17; TEMP 36.7; O2SAT 98
--- NOTE | 2021-02-15 14:04 | CM.DPC ---
DCP continued: Deisy called asked for script for trazedone for the patient to have at the facility- called Dr. Avina to ask for E script to [facility]- however the patient is not on trazedone- called Deisy to let her know the patient is not on trazedone and she corrected and stated she actually needed the Lyrica in an prescription e script sent to [facility] pharmacy - called Dr Lala back and asked for her to send e-script for lyrica to [facility] in [place]. Nadira Mcgee RN Case manger.
--- NOTE | 2021-02-15 14:26 | PC.NURSE ---
Pt discharged to [facility]. Escorted off unit by [employer]EL [employer] MECHANIC and [facility] Personnel via w/c. Pt left in stable condition with all personal belongings. Packet with scripts given to [facility] personnel. Report phoned to Jesenia at [facility]. IV removed. Drsg changed prior to d/c.
--- NOTE | 2021-02-15 14:32 | PT-IP ANOTE ---
Pt refused treatment. States she is leaving in a few minutes.
== END 2021-02-15 14:15 | DRG 455 ==
LOC: OR 06:57 → AC 06:58
PROVIDERS: Physician Assistant; Admitting Provider Orthopaedic Surgery Orthopaedic Surgery of the Spine; Family Provider Physician Assistant Medical; PCP Internal Medicine; Referring Provider Orthopaedic Surgery Orthopaedic Surgery of the Spine; Visit Provider Orthopaedic Surgery Orthopaedic Surgery of the Spine
PROC: 0SG10AJ Fusion of 2 or more Lumbar Vertebral Joints with Interbody Fusion Device, Posterior Approach, Anterior Column, Open Approach (ICD-10-PCS; principal; 2021-02-11 08:45)
DX: M43.16 Spondylolisthesis, lumbar region (principal); M48.061 Spinal stenosis, lumbar region without neurogenic claudication; M41.57 Other secondary scoliosis, lumbosacral region; M54.16 Radiculopathy, lumbar region; E03.9 Hypothyroidism, unspecified; F32.A Depression, unspecified; J45.909 Unspecified asthma, uncomplicated; I10 Essential (primary) hypertension; G47.33 Obstructive sleep apnea (adult) (pediatric); Z20.822 Contact with and (suspected) exposure to COVID-19; Z23 Encounter for immunization
CPT/HCPCS: 36415; 72100; 76000; 82962; 85014; 85018; 87635; 90471; 90662; 97162; 97165; 97530; 97535; C1776; C9803; C9290; J0171; J0690; J1170; J2704; J3010

== ENCOUNTER → 2022-01-26 12:03 | Outpatient (CLI) | payer OTHER, SELFPAY ==
[2021-06-25 11:11] VITALS: BMI 34.3
--- NOTE | 2022-01-26 | DI.CT.S_ITS ---
PROCEDURE: CT LUMBAR SPINE WO CON INDICATIONS: Spinal stenosis, lumbar region without neurogenic claudicati TECHNIQUE: Noncontrast 3 mm thick sections acquired from the T12 level to the sacrum. Sagittal and coronal reformats were constructed. For radiation dose reduction, the following was used: automated exposure control. COMPARISON: None. FINDINGS: Image quality: Excellent. Bones: T postsurgical changes compatible with L3-L5 PLIF. Orthopedic hardware is in expected position. Orthopedic hardware is intact. No lucencies identified at the bone-hardware interface. here is normal bony alignment. No acute vertebral body compression fractures. No suspicious lytic or blastic bony lesions. No pars defects. Severe L2-L3 degenerative disc changes. Moderate L5-S1 degenerative disc changes. Mild L1-L2 degenerative disc changes. Mild bilateral L2-L3, L4-L5 and L5-S1 facet hypertrophy. Mild right and moderate left L3-L4 facet hypertrophy. No significant central canal stenosis. Severe left L5-S1 neural foraminal narrowing with compression of the exiting left L5 nerve Soft tissues: No retroperitoneal masses or hematomas. Visualized aorta is normal in caliber. Scattered colonic diverticuli noted in the visualized sigmoid colon without evidence of diverticulitis. IMPRESSION: L3-L5 PLIF. Multilevel degenerative disc disease. Multilevel facet arthropathy. No severe central canal narrowing. Severe left L5-S1 neural foraminal narrowing with compression of the exiting left L5 nerve root. Dictated by: Cayla Valencia MD, PhD on 01/26/2022 at 14:08 Approved by: Cayla Valencia MD, PhD on 01/26/2022 at 14:13
== END ==
PROVIDERS: Family Provider Physician Assistant Medical; PCP Internal Medicine; Referring Provider Orthopaedic Surgery Orthopaedic Surgery of the Spine; Visit Provider Orthopaedic Surgery Orthopaedic Surgery of the Spine
DX: M51.36 Other intervertebral disc degeneration, lumbar region (principal); M47.816 Spondylosis without myelopathy or radiculopathy, lumbar region; M47.817 Spondylosis without myelopathy or radiculopathy, lumbosacral region; M48.061 Spinal stenosis, lumbar region without neurogenic claudication; M48.07 Spinal stenosis, lumbosacral region; Z98.1 Arthrodesis status
CPT/HCPCS: 72131

== ENCOUNTER → 2022-10-26 11:27 | Outpatient (CLI) | payer OTHER, SELFPAY ==
[2021-06-25 11:11] VITALS: BMI 34.3
--- NOTE | 2022-10-26 | DI.MG.S_ITS ---
BILATERAL DIGITAL SCREENING MAMMOGRAM 3D/2D WITH CAD: 10/26/2022 CLINICAL: Routine screening. Family history of breast cancer. Comparison is made to exams dated: 06/28/2021 mammogram, 05/09/2019 mammogram, and 03/13/2018 mammogram - [facility]. There are scattered areas of fibroglandular density in both breasts (category b / 25%-50% glandular tissue). Current study was also evaluated with a Computer Aided Detection (CAD) system. No significant masses, calcifications, or other findings are seen in either breast. There has been no significant interval change. IMPRESSION: NEGATIVE There is no mammographic evidence of malignancy. A 1 year screening mammogram is recommended. Based on the Tyrer Cuzick model (a risk assessment model) the patient's lifetime risk is 2.5% and her 10 year risk is 0.0%. According to the ACR, ACS, and NCCN guidelines, an annual breast MRI exam along with mammogram is recommended if the patient's lifetime risk is 20% or greater. This exam was interpreted at Station ID: [id number]. NOTE: For mammograms, a report in lay terms will be sent to the patient. Approximately 15% of breast malignancies will not be visualized mammographically. In the management of a palpable breast mass, a negative mammogram must not discourage biopsy of a clinically suspicious lesion. Electronically Signed By: Liam lebron/cornelio:10/26/2022 11:59:21 letter sent: Normal Exam ACR BI-RADS Category 1: Negative [id number]
== END ==
PROVIDERS: Family Provider Physician Assistant Medical; PCP Physician Assistant; Referring Provider Physician Assistant; Visit Provider Physician Assistant
DX: Z12.31 Encounter for screening mammogram for malignant neoplasm of breast (principal); Z80.3 Family history of malignant neoplasm of breast
CPT/HCPCS: 77063; 77067

== ENCOUNTER → 2023-11-03 09:26 | Outpatient (CLI) | payer OTHER, SELFPAY ==
[2021-06-25 11:11] VITALS: BMI 34.3
--- NOTE | 2023-11-03 | DI.MG.S_ITS ---
BILATERAL DIGITAL SCREENING MAMMOGRAM 3D/2D WITH CAD: 11/03/2023 CLINICAL: Routine screening. Family history of breast cancer. Comparison is made to exams dated: 10/26/2022 mammogram - [facility], 06/28/2021 mammogram, 05/09/2019 mammogram, 03/13/2018 mammogram, and 09/23/2015 mammogram - [facility]. There are scattered areas of fibroglandular density in both breasts (category b / 25%-50% glandular tissue). Current study was also evaluated with a Computer Aided Detection (CAD) system. There is a 0.6 cm oval high density focal asymmetry in the right breast at 9 o'clock middle depth. This is more prominent and increased in size. No other significant masses, calcifications, or other findings are seen in either breast. IMPRESSION: INCOMPLETE: NEEDS ADDITIONAL IMAGING EVALUATION The 0.6 cm oval high density focal asymmetry in the right breast is indeterminate. Additional views with possible ultrasound are recommended. Based on the Tyrer Cuzick model (a risk assessment model) the patient's lifetime risk is 2.3% and her 10 year risk is 0.0%. According to the ACR, ACS, and NCCN guidelines, an annual breast MRI exam along with mammogram is recommended if the patient's lifetime risk is 20% or greater. This exam was interpreted at Station ID: [id number]. NOTE: For mammograms, a report in lay terms will be sent to the patient. Approximately 15% of breast malignancies will not be visualized mammographically. In the management of a palpable breast mass, a negative mammogram must not discourage biopsy of a clinically suspicious lesion. Electronically Signed By: Alex Hyde M.D. aty/:11/03/2023 15:38:09 letter sent: Additional Imaging Needed ACR BI-RADS Category 0: Incomplete [id number]
== END ==
PROVIDERS: Family Provider Physician Assistant Medical; PCP Physician Assistant; Referring Provider Physician Assistant; Visit Provider Physician Assistant
DX: Z12.31 Encounter for screening mammogram for malignant neoplasm of breast (principal); Z80.3 Family history of malignant neoplasm of breast; R92.323 Mammographic fibroglandular density, bilateral breasts
CPT/HCPCS: 77063; 77067

== ENCOUNTER → 2023-11-14 13:14 | Outpatient (CLI) | payer OTHER, SELFPAY ==
[2021-06-25 11:11] VITALS: BMI 34.3
--- NOTE | 2023-11-14 13:15 | DI.MG.S_ITS ---
UNILATERAL RIGHT DIGITAL DIAGNOSTIC MAMMOGRAM 3D/2D WITH ADDITIONAL VIEWS: 11/14/2023 CLINICAL: Additional evaluation requested from prior study. Comparison is made to exams dated: 11/03/2023 mammogram, 10/26/2022 mammogram - [facility], and 06/28/2021 mammogram - [facility]. There are scattered areas of fibroglandular density in the right breast (category b / 25%-50% glandular tissue). There is a 0.6 cm focal asymmetry in the right breast at 9 o'clock middle depth. No other significant masses or calcifications are seen in the breast. IMPRESSION: INCOMPLETE: NEEDS ADDITIONAL IMAGING EVALUATION The 0.6 cm focal asymmetry in the right breast is indeterminate. An ultrasound is recommended. Based on the Tyrer Cuzick model (a risk assessment model) the patient's lifetime risk is 2.3% and her 10 year risk is 0.0%. According to the ACR, ACS, and NCCN guidelines, an annual breast MRI exam along with mammogram is recommended if the patient's lifetime risk is 20% or greater. This exam was interpreted at Station ID: [id number]. NOTE: For mammograms, a report in lay terms will be sent to the patient. Approximately 15% of breast malignancies will not be visualized mammographically. In the management of a palpable breast mass, a negative mammogram must not discourage biopsy of a clinically suspicious lesion. Electronically Signed By: Amauyr longoria/cornelio:11/14/2023 14:25:24 ACR BI-RADS Category 0: Incomplete [id number]
--- NOTE | 2023-11-14 13:16 | DI.US.S_ITS ---
LIMITED ULTRASOUND OF RIGHT BREAST AND AXILLA: 11/14/2023 CLINICAL: Patient returns today to evaluate an asymmetry in the right breast. Comparison is made to exams dated: 11/14/2023 mammogram, 11/03/2023 mammogram, 10/26/2022 mammogram - [facility], 06/28/2021 mammogram, 05/09/2019 mammogram, and 03/13/2018 mammogram - [facility]. Color flow and real-time ultrasound of the right breast 9 o'clock, and axilla regions were performed. Palmer scale images of the real-time examination were reviewed. There is a benign 0.7 cm oval cyst in the right breast at 9 o'clock middle depth 5 cm from the nipple. This correlates with mammography findings. IMPRESSION: BENIGN There is no sonographic evidence of malignancy. The 0.7 cm oval cyst in the right breast is benign. Return to annual mammogram screening schedule is recommended. This exam was interpreted at Station ID: [id number]. Electronically Signed By: Amaury longoria/cornelio:11/14/2023 14:26:38 letter sent: Normal Exam Ultrasound BI-RADS: 2 Benign
== END ==
LOC: MAMMO 13:14
PROVIDERS: Family Provider Physician Assistant Medical; PCP Physician Assistant; Referring Provider Physician Assistant; Visit Provider Physician Assistant
DX: R92.8 Other abnormal and inconclusive findings on diagnostic imaging of breast (principal); N60.01 Solitary cyst of right breast; R92.321 Mammographic fibroglandular density, right breast
CPT/HCPCS: 76642; 77065; G0279

== ENCOUNTER → 2024-02-28 14:30 | Outpatient (CLI) | payer OTHER, SELFPAY ==
[2021-06-25 11:11] VITALS: BMI 34.3
--- NOTE | 2024-02-28 14:30 | DI.MRI.S_ITS ---
PROCEDURE: MR LUMBAR SPINE WO CON INDICATIONS: Radiculopathy, lumbar region TECHNIQUE: Noncontrast sagittal T1 spin echo and T2 fast echo, sagittal STIR, and T2 fast spin echo through the lumbar spine. In cases with scoliosis, additional coronal T2 fast spin echo may be performed. COMPARISON: [facility], CR, XR LUMBAR SPINE 2 OR 3 VIEWS, 02/16/2024, 13:12. [facility], MR, L-SPINE WITHOUT CONTRAST, 10/07/2015, 10:32. FINDINGS: Image quality: Excellent Posterior fusion instrumentation extending from L3-L5. Interbody spacer at L3-4. Straightening of the lumbar spine. Mild retrolisthesis of L1 on L2, L2 on L3. Grade 1 anterolisthesis of L3 on L4. Moderate levoscoliosis of the lumbar spine, centered at L3-4. Vertebral body height of the lumbar spine are well maintained. Marked fibrovascular end plate change at L1-2. Multilevel disc bulge and disc desiccation. Conus terminates at the level of T12-L1, and is unremarkable. Right neural foraminal stenosis: Moderate at L2-3. Mild at L3-4. Moderate at L4-5. Left neural foraminal stenosis: Mild at L1-2, L2-3, and moderate at L5-S1. Central canal stenosis: T12-L1: Mild disc bulge. No central canal stenosis. L1-2: Mild disc bulge. Mild bilateral facet arthropathy. Moderate central canal stenosis. L2-3: Disc bulge. Moderate bilateral facet arthropathy. Epidural lipomatosis. Severe central canal stenosis. L3-4: Posterior disc uncovering. Mild bilateral facet arthropathy. No central canal stenosis. L4-5: Moderate bilateral facet arthropathy. No central canal stenosis. L5-S1: Mild disc bulge. No central canal stenosis. 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 Visualized sacrum is intact. No abdominal aortic aneurysm. IMPRESSION: 1. Postprocedure changes of the lumbar spine as described above. 2. Multilevel degenerative changes of the lumbar spine, most pronounced at L2-3, where there is severe central canal stenosis and moderate right, and mild left neural foraminal stenosis, progressed from prior exam.. Dictated by: Shital Tan M.D. on 02/28/2024 at 16:46 Approved by: Shital Tan M.D. on 02/28/2024 at 17:00
== END ==
PROVIDERS: Family Provider Physician Assistant Medical; PCP Physician Assistant; Referring Provider Physical Medicine & Rehabilitation; Visit Provider Physical Medicine & Rehabilitation
DX: M47.26 Other spondylosis with radiculopathy, lumbar region (principal); M48.061 Spinal stenosis, lumbar region without neurogenic claudication; Z98.1 Arthrodesis status
CPT/HCPCS: 72148

== ENCOUNTER → 2025-02-26 10:44 | Outpatient (CLI) | payer OTHER, SELFPAY ==
[2024-10-10 13:29] VITALS: BMI 34.3
--- NOTE | 2025-02-26 10:45 | DI.MG.S_ITS ---
MM screening mammo BI: 02/26/2025. BI-RADS: 1 CLINICAL: 79-year old female for bilateral screening mammogram. Tyrer-Cuzick lifetime risk of 2.4%. No personal or first-degree family history of breast cancer. Current reported family history of breast cancer: maternal aunt. PRIOR EXAMS 11/14/2023, 11/03/2023, 10/26/2022, 06/28/2021. MAMMOGRAPHY TECHNIQUE: 2D and 3D (tomosynthesis) digital mammographic views obtained, with additional images as needed for full coverage. Current study was also evaluated with a Computer Aided Detection (CAD) system. DENSITY B. There are scattered areas of fibroglandular density. MAMMOGRAPHY FINDINGS Bilateral: No suspicious mass, asymmetry, microcalcification, or other abnormality seen. IMPRESSION: * No evidence of malignancy. RECOMMENDATIONS Bilateral * Annual screening mammography. OVERALL ASSESSMENT CATEGORY BI-RADS-1: Negative. The [employer] recommends annual screening mammography beginning at age 40 for women with average risk of breast cancer. ELECTRONICALLY SIGNED: Meaghan Campbell M.D. on 02/27/2025 at 03:48:52 PM PT Interpreting Station ID: [id number]
== END ==
PROVIDERS: Family Provider Physician Assistant Medical; PCP Family Medicine; Referring Provider Family Medicine; Visit Provider Family Medicine
DX: Z12.31 Encounter for screening mammogram for malignant neoplasm of breast (principal); Z80.3 Family history of malignant neoplasm of breast
CPT/HCPCS: 77063; 77067